=== PATIENT | female | born 1980 | race African-American/Black ===

== ENCOUNTER 2023-03-18 13:03 | Inpatient (IN) | payer BC, MEDICAID, OTHER ==
[2023-03-18 14:57] LABS: Amphetamine Screen,Urine Not Detected (NotDetected); Barbiturate Screen,Urine Not Detected (NotDetected); Benzodiazepines Screen,Urine Not Detected (NotDetected); Cocaine Screen,Urine Not Detected (NotDetected); Methadone Screen, Urine Not Detected (NotDetected); Opiate Screen,Urine Not Detected (NotDetected); Phencyclidine Screen,Urine Not Detected (NotDetected); Tricyclic Antidepressant,Urine Not Detected (NotDetected); Urn Cannabinoid Scrn Not Detected (NotDetected)
[2023-03-18 14:58] LABS: Oxycodone Screen, Urine Not Detected (NotDetected)
[2023-03-18 15:11] LABS: Appearance,Urine Clear (Clear); Bilirubin,Urine Negative (Negative); Blood,Urine Negative (Negative); Color,Urine Light Yellow; Glucose,Urine (UA) Negative (Negative); Ketones,Urine Negative (Negative); Leukocyte Esterase,Urine Negative (Negative); Nitrite,Urine Negative (Negative); PH, Urine 5.5 (5.0-8.0); Protein,Urine Negative (Negative); Specific Gravity,Urine 1.008 (1.001-1.035); Urobilinogen,Urine <2.0 mg/dL (<2.0)
--- NOTE | 2023-03-18 16:27 | ED ---
General Adult HPI - General Chief complaint: Psychiatric Symptoms Stated complaint: mental health Time Seen by Provider: 03/18/23 13:34 Source: patient, RN notes reviewed Mode of arrival: ambulatory Limitations: no limitations - History of Present Illness Initial comments: 42-year-old female presents to the emergency department for psych evaluation. Patient states that she has been having eye problems and has been to see multiple optometrists and multiple ophthalmologists over the past 2 months. She states that she had been on tobramycin drops for about 2 months without improvement. Patient recently stopped. She saw her prospect manager today who recommended that she come in for psych evaluation. Patient has a notebook with multiple pages of information that she read to me about her appointments with various doctors. Her mother reports that she frequently talks to herself and laughs with herself. She reports that she has suicidal ideation but no intent or plan. She states that when she has negative thoughts that causes her eye pains to be worse. She states that she feels like she has stuff in her eyes. She states she has no psychiatric history. She denies hallucinations, delusions. - Related Data Home Medications Medication Instructions Recorded Confirmed Amoxicillin 500 mg PO BID 03/18/23 03/18/23 Carboxymethylcell/Glycerin/Pf 1 drop BOTH EYES Q2H 03/18/23 03/18/23 [Refresh Relieva Pf 0.5-1% Drop] Allergies Allergy/AdvReac Type Severity Reaction Status Date / Time No Known Allergies Allergy Verified 03/18/23 15:47 Review of Systems ROS Statement: Those systems with pertinent positive or pertinent negative responses have been documented in the HPI. ROS Other: All systems not noted in ROS Statement are negative. Past Medical History Past Medical History: No Reported History History of Any Multi-Drug Resistant Organisms: None Reported Additional Past Surgical History / Comment(s): Butt Implants 2018 Past Psychological History: No Psychological Hx Reported Smoking Status: Former smoker Past Alcohol Use History: Rare Past Drug Use History: None Reported General Exam Limitations: no limitations General appearance: alert, in no apparent distress, anxious Head exam: Present: atraumatic, normocephalic, normal inspection Eye exam: Present: normal appearance, PERRL, EOMI. Absent: scleral icterus, conjunctival injection, periorbital swelling ENT exam: Present: normal exam, mucous membranes moist Neck exam: Present: normal inspection. Absent: tenderness, meningismus, lymphadenopathy Respiratory exam: Present: normal lung sounds bilaterally. Absent: respiratory distress, wheezes, rales, rhonchi, stridor Cardiovascular Exam: Present: regular rate, normal rhythm, normal heart sounds. Absent: systolic murmur, diastolic murmur, rubs, gallop, clicks GI/Abdominal exam: Present: soft, normal bowel sounds. Absent: distended, tenderness, guarding, rebound, rigid Extremities exam: Present: normal inspection, full ROM, normal capillary refill. Absent: tenderness, pedal edema, joint swelling, calf tenderness Back exam: Present: normal inspection Neurological exam: Present: alert, oriented X3 Psychiatric exam: Present: anxious Skin exam: Present: warm, dry, intact, normal color. Absent: rash Course Vital Signs 03/18/23 03/18/23 03/18/23 13:12 18:20 18:56 Temperature 97.2 F L Pulse Rate 85 77 72 Respiratory 17 18 18 Rate Blood Pressure 133/80 122/81 124/80 O2 Sat by Pulse 97 97 96 Oximetry Medical Decision Making - Medical Decision Making Was pt. sent in by a medical professional or institution (, PA, [employer], urgent care, hospital, or [facility]...) When possible be specific @ -No Did you speak to anyone other than the patient for history (EMS, parent, family, police, friend...)? What history was obtained from this source @ -No Did you review nursing and triage notes (agree or disagree)? Why? @ -I reviewed and agree with nursing and triage notes Were old charts reviewed (outside hosp., previous admission, EMS record, old EKG, old radiological studies, urgent care reports/EKG's, [facility] records)? Report findings @ -No old charts were reviewed Differential Diagnosis (chest pain, altered mental status, abdominal pain women, abdominal pain men, vaginal bleeding, weakness, fever, dyspnea, syncope, headache, dizziness, GI bleed, back pain, seizure, CVA, palpatations, mental health, musculoskeletal)? @ -Differential Mental Health Depression, anxiety, bipolar, psychosis, schizophrenia, borderline personality, situational depression, adjustment disorder, behavioral disorder, brain tumor, malingering, substance abuse, encephalopathy, medication reaction, dementia, hypothyroidism, degenerative neurologic disorder, lupus.... This is not meant to be all-inclusive list EKG interpreted by me (3pts min.). @ -None X-rays interpreted by me (1pt min.). @ -None done CT interpreted by me (1pt min.). @ -None done U/S interpreted by me (1pt. min.). @ -None done What testing was considered but not performed or refused? (CT, X-rays, U/S, labs)? Why? @ -None What meds were considered but not given or refused? Why? @ -None Did you discuss the management of the patient with other professionals (professionals i.e. DrJose, PA, [employer], lab, RT, psych nurse, group social worker, director of marketing analytics, teacher, intelligence officer basic, case management director)? Give summary @ -No Was smoking cessation discussed for >3mins.? @ -No Was critical care preformed (if so, how long)? @ -No Were there social determinants of health that impacted care today? How? (Homelessness, low income, unemployed, alcoholism, drug addiction, transportation, low edu. Level, literacy, decrease access to med. care, [place] [facility], rehab)? @ -No Was there de-escalation of care discussed even if they declined (Discuss DNR or withdrawal of care, Hospice)? DNR status @ -No What co-morbidities impacted this encounter? (DM, HTN, Smoking, COPD, CAD, Cancer, CVA, ARF, Chemo, Hep., AIDS, mental health diagnosis, sleep apnea, morbid obesity)? @ -None Was patient admitted / discharged? Hospital course, mention meds given and route, prescriptions, significant lab abnormalities, going to OR and other pertinent info. @ -Admitted. Patient presented to emergency department for psychiatric evaluation following a visit with her eye doctor. Patient states that she gets a negative thoughts and then has on a pain. She states this has been going on for about 2 months. Patient was admitting to suicidal ideation without attempt or plan. Patient's mother states that the patient has been talking and laughing to herself. Patient's UDS, UA, breathalyzer were negative and patient was cleared for EPS evaluation who recommended inpatient admission. Patient meets inpatient criteria. Patient stable at time of admission. Undiagnosed new problem with uncertain prognosis? @ -No Drug Therapy requiring intensive monitoring for toxicity (Heparin, Nitro, Insulin, Cardizem)? @ -No Were any procedures done? @ -No Diagnosis/symptom? @ -Suicidal ideation Acute, or Chronic, or Acute on Chronic? @ -acute Uncomplicated (without systemic symptoms) or Complicated (systemic symptoms)? @ - Side effects of treatment? @ -No Exacerbation, Progression, or Severe Exacerbation? @ -No Poses a threat to life or bodily function? How? (Chest pain, [place], [place], pneumonia, PE, COPD, DKA, ARF, appy, cholecystitis, CVA, Diverticulitis, Homicidal, Suicidal, threat to staff... and all critical care pts) @ -Suicidal - Lab Data Lab Results 03/18/23 03/18/23 Range/Units 14:44 15:51 Urine Color Light Yellow Urine Appearance Clear (Clear) Urine pH 5.5 (5.0-8.0) Ur Specific [place] 1.008 (1.001-1.035) Urine Protein Negative (Negative) Ur Protein Confirm Not Reportable Urine Glucose (UA) Negative (Negative) Urine Ketones Negative (Negative) Urine Blood Negative (Negative) Urine Nitrite Negative (Negative) Urine Bilirubin Negative (Negative) Ur Bilirubin Confirm Not Reportable Urine Urobilinogen <2.0 (<2.0) mg/dL Ur Leukocyte Esterase Negative (Negative) Urine Opiates Screen Not Detected (NotDetected) Ur Oxycodone Screen Not Detected (NotDetected) Urine Methadone Screen Not Detected (NotDetected) Ur Propoxyphene Screen Not Detected (NotDetected) Ur Barbiturates Screen Not Detected (NotDetected) U Tricyclic Antidepress Not Detected (NotDetected) Ur Phencyclidine Scrn Not Detected (NotDetected) Ur Amphetamines Screen Not Detected (NotDetected) U Methamphetamines Scrn Not Detected (NotDetected) U Benzodiazepines Scrn Not Detected (NotDetected) Urine Cocaine Screen Not Detected (NotDetected) U Marijuana (THC) Screen Not Detected (NotDetected) Coronavirus (PCR) Not Detected (Not Detectd) Disposition Clinical Impression: Suicidal ideation Disposition: ADMITTED IP TO THIS [facility] Condition: Stable Is patient prescribed a controlled substance at d/c from ED?: No
[2023-03-18] MEDS ORDERED: MAG HYDROX/AL HYDROX/SIMETH 30 ML CUP PO PRN (17:37)
[2023-03-18] MEDS ORDERED: MAGNESIUM HYDROXIDE 2,400 MG/10 ML CUP PO PRN (17:37)
[2023-03-18] MEDS ORDERED: IBUPROFEN 600 MG TAB PO PRN (17:37)
[2023-03-18] MEDS ORDERED: ARTIFICIAL TEARS-HYPROMELLOSE DROPS 15 ML BTL BOTH EYES PRN (17:40)
[2023-03-18] MEDS ORDERED: OLANZapine 5 MG TAB PO PRN (17:42)
[2023-03-18] MEDS ORDERED: hydrOXYzine pamoate 25 MG CAP PO PRN (17:42)
[2023-03-18] MEDS ORDERED: hydrOXYzine HCL 50 MG/ML 1 ML VIAL IM PRN (17:42)
[2023-03-18] MEDS ORDERED: OLANZapine 10 MG VIAL IM PRN (17:42)
[2023-03-18 20:03] VITALS: RESP 17
[2023-03-18] MEDS: AMOXICILLIN 500 MG CAP PO SCH (20:07)
[2023-03-19 08:12] LABS: Basophils % (A) 0 %; Eosinophils % (A) 1 %; HCT 41.2 % (34.0-46.0); HGB 13.3 gm/dL (11.4-16.0); Lymphocytes # (A) 1.4 k/uL (1.0-4.8); Lymphocytes % (A) 30 %; MCH 30.4 pg (25.0-35.0); MCHC 32.3 g/dL (31.0-37.0); MCV 94.2 fL (80.0-100.0); Monocytes # (A) 0.2 k/uL (0-1.0); Monocytes % (A) 5 %; Neutrophils # (A) 2.9 k/uL (1.3-7.7); Neutrophils % (A) 62 %; Platelet Count 274 k/uL (150-450); RBC 4.38 m/uL (3.80-5.40); RDW 12.3 % (11.5-15.5); WBC 4.7 k/uL (3.8-10.6)
[2023-03-19 08:32] LABS: ALT 20 U/L (4-34); AST 29 U/L (14-36); African American GFR (CKD) >90 (>60 ml/min/1.73 sqM); Albumin 4.2 g/dL (3.5-5.0); Alkaline Phosphatase 54 U/L (38-126); Anion Gap 10 mmol/L; Blood Urea Nitrogen 9 mg/dL (7-17); Calcium 9.2 mg/dL (8.4-10.2); Carbon Dioxide 28 mmol/L (22-30); Chloride 101 mmol/L (98-107); Glucose 87 mg/dL (74-99); Non-African American GFR(CKD) >90 (>60 ml/min/1.73 sqM); Potassium 4.6 mmol/L (3.5-5.1); Sodium 139 mmol/L (137-145); Total Bilirubin 0.7 mg/dL (0.2-1.3); Total Protein 7.6 g/dL (6.3-8.2)
[2023-03-19] MEDS: AMOXICILLIN 500 MG CAP PO SCH ×2 (08:32→20:45)
[2023-03-19] MEDS ORDERED: NICOTINE 14MG/24HR PATCH TRANSDERM SCH (09:00)
[2023-03-19] MEDS ORDERED: OXcarbazepine 150 MG TAB PO STA (10:54)
--- NOTE | 2023-03-19 12:29 | P.HP ---
Psychiatric H&P - . H&P Date: 03/19/23 History & Physical: Allergies Allergy/AdvReac Type Severity Reaction Status Date / Time No Known Allergies Allergy Verified 03/18/23 15:47 Vital Signs Temp 96.9 F L 03/18/23 19:56 Pulse 96 03/18/23 19:56 Resp 17 03/18/23 19:56 BP 122/80 03/18/23 19:56 Pulse Ox 100 03/18/23 19:56 FiO2 Intake & Output 03/18/23 03/19/23 03/19/23 18:59 06:59 18:59 Weight 78.018 kg 75.863 kg Laboratory Last Values WBC 4.7 k/uL (3.8-10.6) 03/19/23 07:32 RBC 4.38 m/uL (3.80-5.40) 03/19/23 07:32 Hgb 13.3 gm/dL (11.4-16.0) 03/19/23 07:32 Hct 41.2 % (34.0-46.0) 03/19/23 07:32 MCV 94.2 fL (80.0-100.0) 03/19/23 07:32 MCH 30.4 pg (25.0-35.0) 03/19/23 07:32 MCHC 32.3 g/dL (31.0-37.0) 03/19/23 07:32 RDW 12.3 % (11.5-15.5) 03/19/23 07:32 Plt Count 274 k/uL (150-450) 03/19/23 07:32 MPV 7.0 03/19/23 07:32 Neutrophils % 62 % 03/19/23 07:32 Lymphocytes % 30 % 03/19/23 07:32 Monocytes % 5 % 03/19/23 07:32 Eosinophils % 1 % 03/19/23 07:32 Basophils % 0 % 03/19/23 07:32 Neutrophils # 2.9 k/uL (1.3-7.7) 03/19/23 07:32 Lymphocytes # 1.4 k/uL (1.0-4.8) 03/19/23 07:32 Monocytes # 0.2 k/uL (0-1.0) 03/19/23 07:32 Eosinophils # 0.0 k/uL (0-0.7) 03/19/23 07:32 Basophils # 0.0 k/uL (0-0.2) 03/19/23 07:32 Sodium 139 mmol/L (137-145) 03/19/23 07:32 Potassium 4.6 mmol/L (3.5-5.1) 03/19/23 07:32 Chloride 101 mmol/L (98-107) 03/19/23 07:32 Carbon Dioxide 28 mmol/L (22-30) 03/19/23 07:32 Anion Gap 10 mmol/L 03/19/23 07:32 BUN 9 mg/dL (7-17) 03/19/23 07:32 Creatinine 0.64 mg/dL (0.52-1.04) 03/19/23 07:32 Est GFR (CKD-EPI)AfAm >90 (>60 ml/min/1.73 sqM) 03/19/23 07:32 Est GFR (CKD-EPI)NonAf >90 (>60 ml/min/1.73 sqM) 03/19/23 07:32 Glucose 87 mg/dL (74-99) 03/19/23 07:[address] Glu mg/dL 97 mg/dL 03/19/23 07:32 Hemoglobin A1c 5.0 % (<=6.0) 03/19/23 07:32 Calcium 9.2 mg/dL (8.4-10.2) 03/19/23 07:32 Total Bilirubin 0.7 mg/dL (0.2-1.3) 03/19/23 07:32 AST 29 U/L (14-36) 03/19/23 07:32 ALT 20 U/L (4-34) 03/19/23 07:32 Alkaline Phosphatase 54 U/L (38-126) 03/19/23 07:32 Total Protein 7.6 g/dL (6.3-8.2) 03/19/23 07:32 Albumin 4.2 g/dL (3.5-5.0) 03/19/23 07:32 TSH 0.567 mIU/L (0.465-4.680) 03/19/23 07:32 Urine Color Light Yellow 03/18/23 14:44 Urine Appearance Clear (Clear) 03/18/23 14:44 Urine pH 5.5 (5.0-8.0) 03/18/23 14:44 Ur Specific [place] 1.008 (1.001-1.035) 03/18/23 14:44 Urine Protein Negative (Negative) 03/18/23 14:44 Ur Protein Confirm Not Reportable 03/18/23 14:44 Urine Glucose (UA) Negative (Negative) 03/18/23 14:44 Urine Ketones Negative (Negative) 03/18/23 14:44 Urine Blood Negative (Negative) 03/18/23 14:44 Urine Nitrite Negative (Negative) 03/18/23 14:44 Urine Bilirubin Negative (Negative) 03/18/23 14:44 Ur Bilirubin Confirm Not Reportable 03/18/23 14:44 Urine Urobilinogen <2.0 mg/dL (<2.0) 03/18/23 14:44 Ur Leukocyte Esterase Negative (Negative) 03/18/23 14:44 Urine HCG, Qual Not Detected (Not Detectd) 03/18/23 17:37 Urine Opiates Screen Not Detected (NotDetected) 03/18/23 14:44 Ur Oxycodone Screen Not Detected (NotDetected) 03/18/23 14:44 Urine Methadone Screen Not Detected (NotDetected) 03/18/23 14:44 Ur Propoxyphene Screen Not Detected (NotDetected) 03/18/23 14:44 Ur Barbiturates Screen Not Detected (NotDetected) 03/18/23 14:44 U Tricyclic Antidepress Not Detected (NotDetected) 03/18/23 14:44 Ur Phencyclidine Scrn Not Detected (NotDetected) 03/18/23 14:44 Ur Amphetamines Screen Not Detected (NotDetected) 03/18/23 14:44 U Methamphetamines Scrn Not Detected (NotDetected) 03/18/23 14:44 U Benzodiazepines Scrn Not Detected (NotDetected) 03/18/23 14:44 Urine Cocaine Screen Not Detected (NotDetected) 03/18/23 14:44 U Marijuana (THC) Screen Not Detected (NotDetected) 03/18/23 14:44 Coronavirus (PCR) Not Detected (Not Detectd) 03/18/23 15:51 03/19/23 12:29 IDENTIFYING DATA: Patient is a single, unemployed, 42-year-old Afro-Cuban female with no significant psychiatric history who presented to our hospital on 03/18/2023 on the recommendation from her director of purchasing for suicidal ideation. HPI: Patient presented to the hospital on 03/18/2023 for evaluation of suicidal ideation. The patient presented to the hospital on the recommendation of her director of purchasing. The patient has been experiencing bizarre pain and various vague symptoms in regards to her eyes prior to her presentation the hospital. Patient states that this has been ongoing and bothersome for the past 3 months. She does report that it began after she had conjunctivitis. She reports that since then, she has been experiencing intermittent pain that is too much to bear. She reports that the pain is causing her to have suicidal thoughts. The patient does report that she has been experiencing increased stress however since December, she reports that she has been able to maintain "a level head." The patient reports that she lost her job in October and a close friend of hers in November. In regards to mood symptoms, the patient does not endorse any significant symptoms of depression aside from crying episodes. She does report that she normally does not cry however she has been crying more frequently. She is denying any suicidal thoughts except for when she is experiencing the pain. She reports no homicidal ideation. The patient reports no auditory or visual hallucinations. She denies any paranoia or other delusions. The patient denies any significant history of bipolar symptoms. She denies any periods of excessive energy, grandiosity, increased goal-directed activity, or mood lability. The patient reports that she is very concerned about the palms with her eyes and wants to be on a medication that would treat this. She asked for constant reassurance throughout the interview. PAST PSYCHIATRIC HISTORY: Patient states that she has no previous psychiatric history. Patient denies being on any psychiatric medications. Patient denies any previous psychiatric hospitalizations. Patient denies any psychiatric outpatient follow-up. Patient denies any history of suicide attempts in the past. PMH: Past Medical History: No Reported History History of Any Multi-Drug Resistant Organisms: None Reported Additional Past Surgical History / Comment(s): Butt Implants 2018 Past Psychological History: No Psychological Hx Reported Smoking Status: Former smoker Past Alcohol Use History: Rare Past Drug Use History: None Reported ALLERGIES: NO KNOWN DRUG ALLERGIES CHEMICAL DEPENDENCY HISTORY: The patient reports that she quit tobacco approximately 3 months ago because of the high pain. Prior to that, she was smoking 8 cigarettes per day. She reports no alcohol use. She denies any marijuana use. She denies any illicit drug use. FAMILY PSYCHIATRIC/SUBSTANCE USE HISTORY: The patient does report that she has had a maternal grandmother who was schizophrenic. She reports that her father was alcoholic. SOCIAL HISTORY: Patient was born and raised in [place], [place]. She is single, never , and has 2 children ages 18 and 23. She currently lives with her children and stays occasionally with her mother "out of boredom." The patient reports strong support from her family. She has a bachelor's degree in business and majored in finance. She denies any legal history. She reports no service. She states that she is Jehovah'S Witness. She reports no significant history of trauma. MENTAL STATUS EXAM: General Appearance: Patient appears to be stated age is alert, directable, and attempts to cooperate. Patient appears to have fair hygiene and grooming. Behavior: Patient is seated without any agitated behavior. Psychomotor activity slightly elevated. Patient is constantly gestured towards her eyes. Speech: Patient's speech is fluent and nonpressured. Repetitive. Mood/Affect: Patient reports their mood is "very nervous," affect is congruent and anxious. Suicidality/Homicidality: Patient reports suicidal ideation the context of eye pain. Denies any homicidal ideation. Perceptions: Patient denies any visual hallucinations and denies any auditory hallucinations Though content/process: There is no evidence of any delusional thought content and thought process is linear and goal-directed. Memory and concentration: AOX3, grossly intact for the purposes of this session. Can spell "WORLD" backwards Judgment and insight: Fair STRENGTHS/WEAKNESSES: Strength is that the patient is resilient, has no sniffing psychiatric history, and strong family supports. INTELLECT: average IMPRESSIONS: Somatic symptom disorder, severe, with predominant pain Rule out trigeminal neuralgia PLAN: -Patient is admitted under voluntary status to MHU for stabilization of psychiatric symptoms and safety. -Medications : Will start patient on Trileptal 150 mg by mouth twice a day for unspecified mood disorder and for trigeminal neuralgia -Approximately 30 minutes were spent providing the patient with psychoeducation in regards to somatic symptom disorder and constant reassurance. - Zyprexa and Vistaril PRN for agitation/aggression -Patient was informed of the risks, benefits and side effects of the medication and patient verbally consented to taking the medications. Patient signed med consent form and was placed in chart. -Internal Medicine consult to perform medical evaluation and physical. -SW on board for discharge planning. Encourage patient to participate in groups to work on coping skills. 03/19/23 12:29
--- NOTE | 2023-03-19 15:22 | P.HPMEDMHU ---
History of Present Illness H&P Date: 03/19/23 Patient is a 42-year-old -Prydeinig female currently on the mental health unit that I was asked to evaluate for ear pain. Patient seen and examined with nursing present. She reports that she is being treated for an ear infection. She states that after her ear infection started her other ear started to hurt as well and she would like both of them looked at that she is due to have one more dose of antibiotics and she wants to make sure there is not an active infection. She does report some runny and stuffy nose. Vital signs reviewed General: nontoxic, no distress, appears at stated age HEENT: Normocephalic, atraumatic, bilateral tympanic membranes intact without e rythema but with loss of cone of light consistent with increased pressure Cardiac: S1-S2 Lungs: Clear to auscultation bilaterally without any wheezing Neuro: CN II-XI grossly intact, no focal neuro deficits Psych: Alert, oriented, appears anxious with pressured speech Assessment: ALLERGIC rhinitis -I offered the patient a combination of Claritin and Flonase. She does not want to take either of these medications is that she states they have made her "marr icidal" in the past. I explained that Flonase is not systemically absorbed medication and works within the nares however she continues to insist that this has caused suicidal thoughts and worsening of her depression in the past. At this point she declines to take both of the Claritin and Flonase. I have told her to let us know if she decides she would like these ordered in the future if she decided to pursue treatment. Somatization disorder - your psych management Thank you for allowing us to participate in the care of this pleasant patient. Do not hesitate to contact us with questions. Someone can be reached from the [facility] hospitalist group all hours of the day at [phone] or via [employer]. This dictation was prepared using [employer] voice recognition software. Though every attempt is made to correct errors during dictation some may still exist. Past Medical History Past Medical History: No Reported History History of Any Multi-Drug Resistant Organisms: None Reported Additional Past Surgical History / Comment(s): Gluteal Implants 2018 Past Psychological History: No Psychological Hx Reported Smoking Status: Former smoker Past Alcohol Use History: Rare Past Drug Use History: None Reported Medications and Allergies Home Medications Medication Instructions Recorded Confirmed Type Amoxicillin 500 mg PO BID 03/18/23 03/18/23 History Carboxymethylcell/Glycerin/Pf 1 drop BOTH EYES Q2H 03/18/23 03/18/23 History [Refresh Relieva Pf 0.5-1% Drop] Allergies Allergy/AdvReac Type Severity Reaction Status Date / Time No Known Allergies Allergy Verified 03/18/23 15:47 Physical Exam Osteopathic Statement: *. No significant issues noted on an osteopathic structural exam other than those noted in the History and Physical/Consult. Vitals: Vital Signs Temp Pulse Pulse Resp BP BP Pulse Ox 03/18/23 19:56 96.9 F L 96 17 122/80 100 03/18/23 18:56 72 18 124/80 96 03/18/23 18:20 77 18 122/81 97 Cranial Nerve Examination - Cranial Nerves Cranial Nerve II- Optic: Intact Cranial Nerve III- Oculomotor: Intact Cranial Nerve IV- Trochlear: Intact Cranial Nerve V- Trigeminal: Intact Cranial Nerve - Abducens: Intact Cranial Nerve VII- Facial: Intact Cranial Nerve VIII- Auditory: Intact Cranial Nerve IX- Glossopharyngeal: Intact Cranial Nerve X- Vagus: Intact Cranial Nerve XI- Accessory: Intact Cranial Nerve XII- Hypoglossal: Intact Results CBC & Chem 7: 03/19/23 07:32 03/19/23 07:32
[2023-03-19] MEDS: OXcarbazepine 150 MG TAB PO SCH (20:45)
[2023-03-20 06:20] VITALS: BP 115/75; PULSE 120; TEMP 97.9
[2023-03-20] MEDS: OXcarbazepine 150 MG TAB PO SCH ×2 (08:45→21:46)
[2023-03-20] MEDS: [UNRECOGNIZED DRUG - OTHER] BOTH EYES PRN ×4 (09:15→16:13)
[2023-03-20] MEDS ORDERED: OXcarbazepine 150 MG TAB PO STA (09:48)
--- NOTE | 2023-03-20 11:48 | P.PN ---
Progress Note - Text Progress Note Date: 03/20/23 Interval History: Patient was seen wandering the hallways and was directable and agreeable to speak with commercial underwriter in the office. Currently, the patient continues to report that she is feeling a significant amount of pain around her eyes. She reports that this pain is "worse than childbirth." However despite reporting this pain, she appears to be active and not debilitated while in the milieu. She is not tearful. The patient expresses that she is worried that the medications are causing problems. She reports concerns for migraines, nightmares, seizures. Staff have noted no concerns for seizures. She reports no problems with her appetite. She reports difficulty with sleep. She denies any homicidal ideation however she continues to report suicidal ideation "due to the pain." She is asking this provider to refer her to more ophthalmologists upon discharge. Mental Status Exam: General Appearance: Patient appears to be stated age is alert, directable, and cooperative. Behavior: Patient displays elevated psychomotor activity. Speech: Patient's speech is fluent and nonpressured. Hyperverbal and repetitive Mood/Affect: Mood is "not good." Affect is intense and expansive. Suicidality/Homicidality: Patient reports suicidal but no homicidal ideation. Perceptions: Patient denies any visual hallucinations and denies any auditory hallucinations Though content/process: The patient endorses numerous somatic delusions. Strong fixation on her physical symptoms and pain. Memory and concentration: AOX3, grossly intact for the purposes of this session Judgment and insight: Very poor Vital Signs Temp 97.9 F 03/20/23 06:18 Pulse 120 H 03/20/23 06:18 Resp 17 03/20/23 06:18 BP 115/75 03/20/23 06:18 Pulse Ox 97 03/20/23 06:18 FiO2 Assessment Somatic symptom disorder, severe, with predominant pain Plan: -Patient continues to meet criteria for inpatient psychiatric admission for symptom stabilization and safety. Patient has signed adult voluntary form and medication consent and was placed in patient's chart. -Medications: Increase Trileptal to 300 mg by mouth twice a day for unspecified mood disorder and for trigeminal neuralgia Start Zyprexa 2.5 mg by mouth 3 times a day for delusional disorder Start melatonin 10 mg by mouth at bedtime for insomnia -This provider attempts to provide the patient was psychoeducation and reassurance. Patient is contemplative at this time. When necessary Zyprexa and Vistaril for agitation/aggression. -SW on board for discharge planning. Encouraged the patient to participate in milieu.
[2023-03-20] MEDS: OLANZapine 2.5 MG TAB PO SCH ×2 (15:53→21:45)
[2023-03-20] MEDS: MELATONIN 5 MG TABLET PO SCH (21:46)
[2023-03-21] MEDS: OXcarbazepine 150 MG TAB PO SCH (08:54)
[2023-03-21] MEDS: OLANZapine 2.5 MG TAB PO SCH (08:55)
[2023-03-21] MEDS: [UNRECOGNIZED DRUG - OTHER] BOTH EYES PRN (09:02)
--- NOTE | 2023-03-21 10:23 | P.PN ---
Subjective Progress Note Date: 03/21/23 Principal diagnosis: Diagnosis: Delusional disorder with somatic pain Rule out trigeminal neuralgia Patient was seen wandering the hallways and was directable and agreeable to speak with mortgage or loan underwriter in the office. Currently, the patient continues to report that she is feeling a significant amount of pain around her eyes. She reports that this pain is "worse than childbirth." However despite reporting this pain, she appears to be active and not debilitated while in the milieu. She is not tearful. The patient expresses that she is worried that the medications are causing problems. She reports concerns for migraines, nightmares, seizures. Staff have noted no concerns for seizures. She reports no problems with her appetite. She reports difficulty with sleep. She denies any homicidal ideation however she continues to report suicidal ideation "due to the pain." She is asking this provider to refer her to more ophthalmologists upon discharge. Mental Status Exam: The patient is alert intelligent and does not seem to be in any pain. If you do not confront her focus she does not get agitated. When you try to clarify her strange description of symptoms such as, "I was trying to rub the sleep out of my eyes". She wanders off tying about other things and could not tell me what she meant by sleep in her eyes. She has her series of how things happened that she was smoking contaminated her fingers rub to rise and that has caused some sort of ALLERGIC reaction. General Appearance: Patient appears to be stated age is alert, directable, and cooperative. Behavior: Patient displays elevated psychomotor activity. Speech: Patient's speech is fluent and nonpressured. Hyperverbal and repetitive Mood/Affect: Mood is "not good." Affect is intense and expansive. Suicidality/Homicidality: Patient reports suicidal but no homicidal ideation. Perceptions: Patient denies any visual hallucinations and denies any auditory hallucinations Though content/process: The patient endorses numerous somatic delusions. Strong fixation on her physical symptoms and pain. Memory and concentration: AOX3, grossly intact for the purposes of this session Judgment and insight: Very poor Assessment : Prognosis is guarded in: I believe that she has an ego-syntonic somatic fixation that is not going to respond to confrontation or medications or even if she gets to see all the different doctors and they'll say there is nothing to be treated she was just keep looking. Then she finds a Trileptal somewhat helpful I'm might increase the frequency so glasses a day and she is sleeping better on the melatonin. Diagnosis: delusional disorder Somatic symptom disorder, severe, with predominant pain Plan: Unfortunately delusional disorder not respond well to much of anything because it's too ego-syntonic -Patient continues to meet criteria for inpatient psychiatric admission for symptom stabilization and safety. Patient has signed adult voluntary form and medication consent and was placed in patient's chart. -Medications: Increase Trileptal to 300 mg by mouth twice a day for unspecified mood disorder and for trigeminal neuralgia she said this was helpful but doesn't seem to last she does not have any dizziness or physical complaints from it. I'm going to increase it to 3 times a day She reported that the Zyprexa made the itching of her eyeballs and pain worse so she refuses to take it Start melatonin 10 mg by mouth at bedtime for insomnia she said this was helpful -This provider attempts to provide the patient was psychoeducation and nimisha ssurance. Patient is contemplative at this time. When necessary Zyprexa and Vistaril for agitation/aggression. -SW on board for discharge planning. Encouraged the patient to participate in milieu. Objective - Vital Signs Vital signs: Vital Signs Temp 97.9 F 03/20/23 06:18 Pulse 120 H 03/20/23 06:18 Resp 17 03/20/23 06:18 BP 115/75 03/20/23 06:18 Pulse Ox 97 03/20/23 06:18 FiO2 - Labs CBC & Chem 7: 03/19/23 07:32 03/19/23 07:32
[2023-03-21] MEDS: OXcarbazepine 300 MG TAB PO SCH ×2 (15:41→21:08)
[2023-03-21] MEDS: MELATONIN 5 MG TABLET PO SCH (21:08)
[2023-03-22] MEDS: OXcarbazepine 300 MG TAB PO SCH ×2 (09:19→20:41)
--- NOTE | 2023-03-22 11:20 | P.PN ---
Subjective Progress Note Date: 03/22/23 Principal diagnosis: Diagnosis: I think that this is a Conversion disorder rather than Delusional disorder with somatic pain but they are similar Rule out trigeminal neuralgia Patient was seen laying in bed at 11 in the morning and agreeable to speak with underwriter mortgage loan in the office. Currently, the patient continues to report that she is feeling a significant amount of pain around her eyes. She reports that this pain is "worse than childbirth." She had reported that Trileptal gave her a slight relief but didn't last long enough so increased to 3 a day which said just made her eyes feel worse. When I tried to talk to her about the fact that her brain was probably generating the pain to get her out of something and that everyone with conversion disorder believe they don't have a conversion disorder and says yes but is her doctor and that she should consider this to be most likely not something that will respond to medicine but might get better on cou nseling, she said "yes but no one can live with this terrible pain." However despite reporting this pain, she appears to be active and not debilitated while in the milieu. She is not tearful. The patient expresses that she is worried that the medications are causing problems. I believe that no matter what medicines are used they will not work and no matter what tests are running they will not find anything but should be sure that there is something there and continue to seek further tests further specialists. She reports concerns for migraines, nightmares, seizures. Staff have noted no concerns for seizures. She reports no problems with her appetite. She reports difficulty with sleep. She denies any homicidal ideation however she continues to report suicidal ideation "due to the pain." She is asking this provider to refer her to more ophthalmologists upon discharge. Mental Status Exam: The patient is alert intelligent and does not seem to be in any pain. If you do not confront her focus she does not get agitated. When you try to get her to identify stresses in her life that might have contributed to develop a conversion disorder. She wanders off on other topics talking about other things. She has her series of how things happened that she was smoking contaminated her fingers rub to rise and that has caused some sort of ALLERGIC reaction. Now she is focused on how the air conditioner turning on and is causing the pain get worse this allows her to not go to groups. Remote turn off their condition room but not in the group. This is typical conversion disorder that he gets to immediate present responsibility. General Appearance: Patient appears to be stated age is alert, directable, and cooperative. Behavior: Patient displays elevated psychomotor activity. Speech: Patient's speech is fluent and nonpressured. Hyperverbal and repetitive Mood/Affect: Mood is "not good." Affect is intense and expansive. Suicidality/Homicidality: Patient reports suicidal but no homicidal ideation. Perceptions: Patient denies any visual hallucinations and denies any auditory hallucinations Though content/process: The patient endorses numerous somatic delusions. Strong fixation on her physical symptoms and pain. Memory and concentration: AOX3, grossly intact for the purposes of this session Judgment and insight: Very poor Assessment : Prognosis is guarded: I believe that she has an ego-syntonic somatic fixation that is not going to respond to confrontation or medications or even if she gets to see all the different doctors and they'll say there is nothing to be treated she was just keep looking. Then she finds a Trileptal somewhat. Diagnosis: Conversion disorder possible delusional disorder with Somatic symptom disorder, severe, with predominant pain Plan: Unfortunately conversion or delusional disorder 2 not respond well to much of anything because it's too ego-syntonic -Patient continues to meet criteria for inpatient psychiatric admission for symptom stabilization and safety. Patient has signed adult voluntary form and medication consent and was placed in patient's chart. -Medications: Go back down to Trileptal to 300 mg by mouth twice a day for unspecified mood disorder and for trigeminal neuralgia. She reported that the Zyprexa made the itching of her eyeballs and pain worse so she refuses to take it Start melatonin 10 mg by mouth at bedtime for insomnia she said this was helpful -This provider attempts to provide the patient was psychoeducation and reassurance. Patient is contemplative at this time. When necessary Zyprexa and Vistaril for agitation/aggression. -SW on board for discharge planning. Encouraged the patient to participate in milieu. Objective - Vital Signs Vital signs: Vital Signs Temp 97.9 F 03/20/23 06:18 Pulse 120 H 03/20/23 06:18 Resp 17 03/20/23 06:18 BP 115/75 03/20/23 06:18 Pulse Ox 97 03/20/23 06:18 FiO2 Intake & Output 03/21/23 03/22/23 03/22/23 18:59 06:59 18:59 Weight 78.3 kg - Labs CBC & Chem 7: 03/19/23 07:32 03/19/23 07:32
[2023-03-22] MEDS: [UNRECOGNIZED DRUG - OTHER] BOTH EYES PRN ×5 (11:46→20:41)
[2023-03-22] MEDS: MELATONIN 5 MG TABLET PO SCH (20:41)
[2023-03-23] MEDS: [UNRECOGNIZED DRUG - OTHER] BOTH EYES PRN ×2 (08:47→11:24)
[2023-03-23] MEDS: OXcarbazepine 300 MG TAB PO SCH (09:44)
--- NOTE | 2023-03-23 12:21 | P.DS ---
Providers Date of admission: 03/18/23 17:25 Expected date of discharge: 03/23/23 Attending physician: Jarred Bueno MD Consults: 03/18/23 17:37 Consult Physician Routine Consulting Provider: Shaw Goncalves Consult Reason/Comments: H&P Do you want consulting provider notified?: Yes Primary care physician: Poli Graham Kut - Discharge Diagnosis(es) (1) Somatic symptom disorder, persistent, severe Current Visit: Yes Status: Acute Priority: High Hospital Course: Admission HPI: Patient is a single, unemployed, 42-year-old Afro-[place] female with no significant psychiatric history who presented to our hospital on 03/18/2023 on the recommendation from her curtain stretcher for suicidal ideation. HPI: Patient presented to the hospital on 03/18/2023 for evaluation of suicidal ideation. The patient presented to the hospital on the recommendation of her curtain stretcher. The patient has been experiencing bizarre pain and various vague symptoms in regards to her eyes prior to her presentation the hospital. Patient states that this has been ongoing and bothersome for the past 3 months. She does report that it began after she had conjunctivitis. She reports that since then, she has been experiencing intermittent pain that is too much to bear. She reports that the pain is causing her to have suicidal thoughts. The patient does report that she has been experiencing increased stress however since December, she reports that she has been able to maintain "a level head." The patient reports that she lost her job in October and a close friend of hers in November. In regards to mood symptoms, the patient does not endorse any significant symptoms of depression aside from crying episodes. She does report that she normally does not cry however she has been crying more frequently. She is denying any suicidal thoughts except for when she is experiencing the pain. She reports no homicidal ideation. The patient reports no auditory or visual hallucinations. She denies any paranoia or other delusions. The patient denies any significant history of bipolar symptoms. She denies any periods of excessive energy, grandiosity, increased goal-directed activity, or mood lability. The patient reports that she is very concerned about the palms with her eyes and wants to be on a medication that would treat this. She asked for constant reassurance throughout the interview. Patient states that she has no previous psychiatric history. Patient denies being on any psychiatric medications. Patient denies any previous psychiatric hospitalizations. Patient denies any psychiatric outpatient follow-up. Patient denies any history of suicide attempts in the past. Hospital course: Upon admission to the unit patient was initially presenting as very somatic and endorsing suicidal ideation the context of her severe somatic symptoms. Patient was however directable and agreeable to commence treatment. Patient got along well with other patients on the unit and followed unit protocol. Patient was compliant with the medications and denied any side effects throughout hospital course. Firstly, the patient was educated on somatic symptoms disorder and the importance of reassurance from her outpatient providers and the importance of minimizing invasive testing and invasive treatment. Patient did not appear to be hesitant in accepting this and continued to maintain that there was something physically happening. Patient was started on Trileptal for management of unspecified mood disorder with the added benefit that it may treat trigeminal neuralgia should the patient be experiencing this as the underlying cause. Patient spoke of her stressors and engaged in therapy both group and individual. Patient was also seen by medical team for history and physical exam. A trial of Zyprexa was also started however the patient reported that she experienced significant side effects did not wish to continue taking this medication. The patient also did not tolerate higher doses of the Trileptal. The patient was constantly counseled and provided with psychoeducation regarding somatic symptoms disorder but continues to remain delusional. Despite this, the patient displayed no impairment to her day-to-day activities and living. She attended groups the high-level participation and although she endorsed significant pain, the patient did not appear to be debilitated and was ambulating around the milieu and interacting with staff and peers appropriately. On the day of discharge, the patient is not reporting any suicidal or homicidal ideation, intention, and/or plan. She is not reporting any auditory or visual hallucinations. She denies any access to firearms or other weapons. The patient remains future and goal oriented however despite reassurance, she wishes to seek further evaluation treatment from another curtain stretcher, preferably at the [facility]. The patient is future and goal oriented. The patient reports wanting to live for her health and for her family. The patient does not have a significant history of substance abuse however was counseled at great length on abstaining small substances including tobacco, marijuana, alcohol, and all illicit drugs. She was counseled on the importance of medication adherence and appropriate outpatient follow-up. Prior to discharge, meeting will be arranged by social work has questions and ensure safety. Aside from her somatic complaints of eye pain, the patient is not endorsing any other medical issues or concerns and denies any chest pain, shortness of breath, palpitations, nausea, akathisia, or tardive dyskinesia. Mental status exam: General Appearance: Patient appears to be stated age is alert, pleasant, and cooperative. Patient is in no acute distress and has fair hygiene and grooming Behavior: Patient is calmly seated without any agitated behavior. Speech: Patient's speech is fluent and nonpressured. Mood/Affect: Patient reports their mood is "it is still bothering me but the Trileptal helps a little bit", affect is congruent and euthymic. Suicidality/Homicidality: Patient reports no suicidal or homicidal ideation. Perceptions: Patient denies any auditory or visual hallucinations. Though content/process: There is no evidence of any delusional thought content and thought process is linear and goal-directed. Patient is future oriented Memory and concentration: AOX3, grossly intact for the purposes of this session. Can spell "WORLD" backwards correctly. Judgment and insight: Improved with guarded prognosis Impression: Somatic symptom disorder, severe, with predominant pain Plan: -Continue with discharge today as patient has improved and stabilized psychiatrically and is not currently an imminent threat to herself and/or others. Patient remain at chronically elevated risk due to the severity of her somatic symptoms disorder. Her current symptoms are ego syntonic and therefore she does not agree with treatment otherwise. The patient was provided with education on somatic symptom disorder with recommendations for frequent outpatient follow-up with reassurance and to avoid invasive testing and treatment. -Continue medications: Trileptal 300 mg by mouth twice a day for off label use for unspecified mood disorder with added benefit for possible pain management from trigeminal neuralgia Vistaril 25 mg by mouth 3 times a day when necessary for anxiety/seasonal allergies Melatonin 10 mg daily at bedtime for insomnia Ibuprofen for pain when necessary -Patient was counseled on the need for medication compliance and appropriate follow-up at mental health and also primary care for medical issues. Patient verbalized understanding and agreed. -Social work to arrange for and conduct family meeting to ensure safety upon discharge and answer any questions/concerns. Social work also to arrange for patients follow up appointments with [facility] for psychiatric care along with follow up with primary care provider. -Patient counseled on abstaining from recreational drugs and marijuana and alcohol. Was informed/educated on the adverse effects on their physical and mental health. Patient verbally agreed and understood. -Patient was instructed to return to the hospital or seek immediate medical care if their psychiatric or medical symptoms do worsen or reoccur. -Psychoeducation and supportive therapy provided to patient. Risks and benefits of pharmacological treatment versus the risks and benefits of nontreatment weighed and discussed. Informed consent discussion held. Common side effects of psychotropics discussed such as, but not limited to headache, GI disturbance, sexual dysfunction, movement disorders, sedation, and orthostatic hypotension. Life threatening and blackbox warnings of prescribed medications also discussed. Potential risks of operating a vehicle or heavy machinery discussed with patient at length. Advised on importance of compliance and a reliable and responsible manner. Patient advised to review FDA consumer labeling of all medications prior to taking. Patient verbalized understanding of potential risks, and agrees with current treatment plan. Patient advised to medically contact physician/emergency personnel if any acute changes in condition occur. Vital Signs Temp 97.9 F 03/20/23 06:18 Pulse 120 H 03/20/23 06:18 Resp 17 03/20/23 06:18 BP 115/75 03/20/23 06:18 Pulse Ox 97 03/20/23 06:18 FiO2 Intake & Output 03/22/23 03/23/23 03/23/23 18:59 06:59 18:59 Weight 78.3 kg Laboratory Results WBC 4.7 k/uL (3.8-10.6) 03/19/23 07:32 RBC 4.38 m/uL (3.80-5.40) 03/19/23 07:32 Hgb 13.3 gm/dL (11.4-16.0) 03/19/23 07:32 Hct 41.2 % (34.0-46.0) 03/19/23 07:32 MCV 94.2 fL (80.0-100.0) 03/19/23 07:32 MCH 30.4 pg (25.0-35.0) 03/19/23 07:32 MCHC 32.3 g/dL (31.0-37.0) 03/19/23 07:32 RDW 12.3 % (11.5-15.5) 03/19/23 07:32 Plt Count 274 k/uL (150-450) 03/19/23 07:32 MPV 7.0 03/19/23 07:32 Neutrophils % 62 % 03/19/23 07:32 Lymphocytes % 30 % 03/19/23 07:32 Monocytes % 5 % 03/19/23 07:32 Eosinophils % 1 % 03/19/23 07:32 Basophils % 0 % 03/19/23 07:32 Neutrophils # 2.9 k/uL (1.3-7.7) 03/19/23 07:32 Lymphocytes # 1.4 k/uL (1.0-4.8) 03/19/23 07:32 Monocytes # 0.2 k/uL (0-1.0) 03/19/23 07:32 Eosinophils # 0.0 k/uL (0-0.7) 03/19/23 07:32 Basophils # 0.0 k/uL (0-0.2) 03/19/23 07:32 Sodium 139 mmol/L (137-145) 03/19/23 07:32 Potassium 4.6 mmol/L (3.5-5.1) 03/19/23 07:32 Chloride 101 mmol/L (98-107) 03/19/23 07:32 Carbon Dioxide 28 mmol/L (22-30) 03/19/23 07:32 Anion Gap 10 mmol/L 03/19/23 07:32 BUN 9 mg/dL (7-17) 03/19/23 07:32 Creatinine 0.64 mg/dL (0.52-1.04) 03/19/23 07:32 Est GFR (CKD-EPI)AfAm >90 (>60 ml/min/1.73 sqM) 03/19/23 07:32 Est GFR (CKD-EPI)NonAf >90 (>60 ml/min/1.73 sqM) 03/19/23 07:32 Glucose 87 mg/dL (74-99) 03/19/23 07:[address] Glu mg/dL 97 mg/dL 03/19/23 07:32 Hemoglobin A1c 5.0 % (<=6.0) 03/19/23 07:32 Calcium 9.2 mg/dL (8.4-10.2) 03/19/23 07:32 Total Bilirubin 0.7 mg/dL (0.2-1.3) 03/19/23 07:32 AST 29 U/L (14-36) 03/19/23 07:32 ALT 20 U/L (4-34) 03/19/23 07:32 Alkaline Phosphatase 54 U/L (38-126) 03/19/23 07:32 Total Protein 7.6 g/dL (6.3-8.2) 03/19/23 07:32 Albumin 4.2 g/dL (3.5-5.0) 03/19/23 07:32 TSH 0.567 mIU/L (0.465-4.680) 03/19/23 07:32 Urine Color Light Yellow 03/18/23 14:44 Urine Appearance Clear (Clear) 03/18/23 14:44 Urine pH 5.5 (5.0-8.0) 03/18/23 14:44 Ur Specific [place] 1.008 (1.001-1.035) 03/18/23 14:44 Urine Protein Negative (Negative) 03/18/23 14:44 Ur Protein Confirm Not Reportable 03/18/23 14:44 Urine Glucose (UA) Negative (Negative) 03/18/23 14:44 Urine Ketones Negative (Negative) 03/18/23 14:44 Urine Blood Negative (Negative) 03/18/23 14:44 Urine Nitrite Negative (Negative) 03/18/23 14:44 Urine Bilirubin Negative (Negative) 03/18/23 14:44 Ur Bilirubin Confirm Not Reportable 03/18/23 14:44 Urine Urobilinogen <2.0 mg/dL (<2.0) 03/18/23 14:44 Ur Leukocyte Esterase Negative (Negative) 03/18/23 14:44 Urine HCG, Qual Not Detected (Not Detectd) 03/18/23 17:37 Urine Opiates Screen Not Detected (NotDetected) 03/18/23 14:44 Ur Oxycodone Screen Not Detected (NotDetected) 03/18/23 14:44 Urine Methadone Screen Not Detected (NotDetected) 03/18/23 14:44 Ur Propoxyphene Screen Not Detected (NotDetected) 03/18/23 14:44 Ur Barbiturates Screen Not Detected (NotDetected) 03/18/23 14:44 U Tricyclic Antidepress Not Detected (NotDetected) 03/18/23 14:44 Ur Phencyclidine Scrn Not Detected (NotDetected) 03/18/23 14:44 Ur Amphetamines Screen Not Detected (NotDetected) 03/18/23 14:44 U Methamphetamines Scrn Not Detected (NotDetected) 03/18/23 14:44 U Benzodiazepines Scrn Not Detected (NotDetected) 03/18/23 14:44 Urine Cocaine Screen Not Detected (NotDetected) 03/18/23 14:44 U Marijuana (THC) Screen Not Detected (NotDetected) 03/18/23 14:44 Coronavirus (PCR) Not Detected (Not Detectd) 03/18/23 15:51 Allergies Allergy/AdvReac Type Severity Reaction Status Date / Time No Known Allergies Allergy Verified 03/18/23 15:47 Patient Condition at Discharge: Stable Plan - Discharge Summary Discharge Rx Participant: No New Discharge Prescriptions: New OXcarbazepine [Trileptal] 300 mg PO BID 30 Days #60 tab hydrOXYzine pamoate [Vistaril] 25 mg PO TID PRN 7 Days #21 capsule PRN Reason: For allergies Melatonin 10 mg PO HS 30 Days #60 tab Ibuprofen 600 mg PO TID PRN 7 Days #21 tab PRN Reason: For Pain Continue Carboxymethylcell/Glycerin/Pf [Refresh Relieva Pf 0.5-1% Drop] 1 drop BOTH EYES Q2H Discontinued Amoxicillin 500 mg PO BID Discharge Medication List Carboxymethylcell/Glycerin/Pf [Refresh Relieva Pf 0.5-1% Drop] 1 drop BOTH EYES Q2H 03/18/23 [History] Ibuprofen 600 mg PO TID PRN 7 Days #21 tab 03/23/23 [Rx] Melatonin 10 mg PO HS 30 Days #60 tab 03/23/23 [Rx] OXcarbazepine [Trileptal] 300 mg PO BID 30 Days #60 tab 03/23/23 [Rx] hydrOXYzine pamoate [Vistaril] 25 mg PO TID PRN 7 Days #21 capsule 03/23/23 [Rx] Follow up Appointment(s)/Referral(s): [facility] [Outside] - 03/26/23 9:00 am Poli Christy MD [Primary Care Provider] - 1-2 days Patient Instructions/Handouts: Trigeminal Neuralgia (DC), Conversion Disorder (DC) Activity/Diet/Wound Care/Special Instructions: Avoid the use of street drugs and alcohol. Take all medications as prescribed. When you are in need of refills on your medications, please contact your medical provider and/or outpatient psychiatrist to have this done. Please go to scheduled outpatient appointments for aftercare treatment. If symptoms return or become worse, call the crisis line at and/or go to the nearest emergency room for evaluation. Discharge Disposition: HOME SELF-CARE
== END 2023-03-23 14:12 | disposition home or self-care (01) | DRG 755 ==
LOC: EC 13:03 → 3MHU 17:25
PROVIDERS: ADMIT Psychiatry & Neurology Psychiatry; ATTEND Psychiatry & Neurology Psychiatry
DX: F45.41 Pain disorder exclusively related to psychological factors (principal); R45.851 Suicidal ideations; G47.00 Insomnia, unspecified; Z20.822 Contact with and (suspected) exposure to COVID-19; H10.9 Unspecified conjunctivitis; J30.9 Allergic rhinitis, unspecified; Z87.891 Personal history of nicotine dependence; Z79.899 Other long term (current) drug therapy; Z76.5 Malingerer [conscious simulation]
CPT/HCPCS: 80053; 80306; 81003; 81025; 82075; 83036; 84443; 85025; 87086; 87635; 99285

== ENCOUNTER 2023-05-22 10:02 | Emergency (ER) | payer OTHER ==
[2023-05-22] MEDS ORDERED: CIPROFLOXACIN-DEXAMETH 0.3-0.1% DROPS 7.5 ML BTL BOTH EARS STA (10:52)
[2023-05-22] MEDS ORDERED: IPRATROPIUM BROMIDE 0.06% NASAL SPRAY (15 ML) NASAL STA (10:52)
[2023-05-22] MEDS ORDERED: DEXAMETHASONE SOD PHOSPHATE 10 MG/ML 1 ML VIAL IM STA (10:53)
--- NOTE | 2023-05-22 10:57 | ED ---
ENT HPI - General Chief complaint: ENT Stated complaint: ear pain Time Seen by Provider: 05/22/23 10:32 Source: patient, RN notes reviewed Mode of arrival: ambulatory Limitations: no limitations - History of Present Illness Initial comments: This is a 42-year-old female who presents to the emergency department for left ear pain. She was seen at [facility] on 05/10 for the same problem. She was put on a Z-Victor M and a course of steroids, but believes that she has not gotten any better. Also notes that she has continued to have postnasal drainage. She has continued to use Singulair, Claritin, and Flonase nasal spray. Denies any fevers, chills, dyspnea, chest pain, palpitations, abdominal pain, nausea, vomiting, diarrhea, back pain, or headaches. MD complaint: ear pain - Related Data Home Medications Medication Instructions Recorded Confirmed Carboxymethylcell/Glycerin/Pf 1 drop BOTH EYES Q2H 03/18/23 03/18/23 [Refresh Relieva Pf 0.5-1% Drop] Previous Rx's Medication Instructions Recorded Ibuprofen 600 mg PO TID PRN 7 Days #21 tab 03/23/23 Melatonin 10 mg PO HS 30 Days #60 tab 03/23/23 OXcarbazepine [Trileptal] 300 mg PO BID 30 Days #60 tab 03/23/23 hydrOXYzine pamoate [Vistaril] 25 mg PO TID PRN 7 Days #21 capsule 03/23/23 Allergies Allergy/AdvReac Type Severity Reaction Status Date / Time No Known Allergies Allergy Verified 05/24/23 02:17 Review of Systems ROS Statement: Those systems with pertinent positive or pertinent negative responses have been documented in the HPI. ROS Other: All systems not noted in ROS Statement are negative. Past Medical History Past Medical History: No Reported History History of Any Multi-Drug Resistant Organisms: None Reported Additional Past Surgical History / Comment(s): Gluteal Implants 2018 Past Psychological History: No Psychological Hx Reported Smoking Status: Former smoker Past Alcohol Use History: Rare Past Drug Use History: None Reported General Exam Limitations: no limitations General appearance: alert, in no apparent distress Head exam: Present: atraumatic, normocephalic, normal inspection ENT exam: Present: other (Left canal erythema) Respiratory exam: Present: normal lung sounds bilaterally. Absent: respiratory distress, wheezes, rales, rhonchi, stridor Cardiovascular Exam: Present: regular rate, normal rhythm, normal heart sounds. Absent: systolic murmur, diastolic murmur, rubs, gallop, clicks Neurological exam: Present: alert, oriented X3, CN II-XII intact Psychiatric exam: Present: normal affect, normal mood Skin exam: Present: warm, dry, intact, normal color. Absent: rash Course Vital Signs 05/22/23 05/22/23 10:11 11:27 Temperature 98.6 F 98.4 F Pulse Rate 91 79 Respiratory 20 18 Rate Blood Pressure 130/76 132/81 O2 Sat by Pulse 96 97 Oximetry Medical Decision Making - Medical Decision Making This is a 42-year-old female who presents to the emergency department for left ear pain and postnasal drip. Was pt. sent in by a medical professional or institution? @ -No Did you speak to anyone other than the patient for history? @ -No Did you review nursing and triage notes? @ -Yes, and I agree, it is accurate with regards to the patient's symptoms. Were old charts reviewed? @ -No Differential Diagnosis? @ -Differential Ear Pain: Otitis media, otitis externa, eustachian tube dysfunction, allergic rhinitis, barotrauma, bullous myringitis, this is not meant to be an all-inclusive list. EKG interpreted by me (3pts min.)? @ -Not obtained X-rays interpreted by me (1pt min.)? @ -Not obtained CT interpreted by me (1pt min.)? @ -Not obtained U/S interpreted by me (1pt. min.)? @ -Not obtained What testing was considered but not performed? (CT, X-rays, U/S, labs)? Why? @ -None What meds were considered but not given? Why? @ -None Did you discuss the management of the patient with other professionals? @ -No Did you reconcile home meds? @ -No Was smoking cessation discussed for >3mins.? @ -No Was critical care preformed (if so, how long)? @ -No Were there social determinants of health that impacted care today? How? (Homelessness, low income, unemployed, alcoholism, drug addiction, transportation, low edu. Level, literacy, decrease access to med. care, halfway, rehab)? @ -No Was there de-escalation of care discussed even if they declined? (Discuss DNR or withdrawal of care, Hospice)? @ -No What co-morbidities impacted this encounter? (DM, HTN, Smoking, COPD, CAD, Cancer, CVA, Hep., AIDS, mental health diagnosis, sleep apnea, morbid obesity)? @ -None Was patient admitted / discharged? @ -Discharged. On physical exam she had questionable left canal erythema. She was given a bottle of Ciprodex drops in the emergency department. She was also given a bottle of ipratropium nasal spray for the post nasal drainage she has been experiencing. Advised she continue with OTC antihistamines as well. Information for ENT follow up provided. She is advised to contact them for further evaluation of ongoing symptoms. Undiagnosed new problem with uncertain prognosis? @ -None Drug Therapy requiring intensive monitoring for toxicity (Heparin, Nitro, Insulin, Cardizem)? @ -None Were any procedures done? @ -None Diagnosis/symptom? @ -Otitis externa, post nasal drip, allergic rhinitis Acute, or Chronic, or Acute on Chronic? @ -Acute Uncomplicated (without systemic symptoms) or Complicated (systemic symptoms)? @ -Uncomplicated Side effects of treatment? @ -None Exacerbation, Progression, or Severe Exacerbation] @ -Not applicable Poses a threat to life or bodily function? @ -No Return precautions reviewed in depth, the patient is instructed to return to the emergency department with any new, worsening, or concerning symptoms. Patient verbalized understanding. This case was discussed in detail with the attending ED physician, Dr. Dallas. Presentation, findings, and treatment plan discussed in detail as well. Disposition Clinical Impression: Otitis externa, Post-nasal drip, Allergic rhinitis Disposition: HOME SELF-CARE Instructions (If sedation given, give patient instructions): Swimmer's Ear (ED), Allergic Rhinitis (ED) Additional Instructions: Return to the emergency department with any new, worsening, or concerning symptoms. Apply the eardrops as 4 drops to both ears twice daily for 7 days. You can use the provided nasal spray 3-4 times daily to help with the postnasal drainage. Continue to use Flonase nasal spray and the antihistamine such as Singulair and Claritin as needed for ongoing symptoms as well. Contact the ENT office as listed below for ongoing management of your symptoms. Is patient prescribed a controlled substance at d/c from ED?: No Referrals: Poli Christy [Primary Care Provider] - 1-2 days Dakota Morataya MD [STAFF PHYSICIAN] - 1-2 days
[2023-05-22 11:28] VITALS: BP 132/81; PULSE 79; RESP 18; TEMP 98.4
== END 2023-05-22 11:28 | disposition home or self-care (01) ==
LOC: EC 10:02
DX: H60.92 Unspecified otitis externa, left ear (principal); R09.82 Postnasal drip; J30.9 Allergic rhinitis, unspecified; Z87.891 Personal history of nicotine dependence
CPT/HCPCS: 99282; 96372; J1100

== ENCOUNTER 2023-05-24 02:05 | Emergency (ER) | payer OTHER ==
[2023-05-24 02:17] VITALS: RESP 18
--- NOTE | 2023-05-24 03:08 | ED ---
ENT HPI - General Chief complaint: ENT Stated complaint: Ear infection Time Seen by Provider: 05/24/23 02:33 Source: patient Mode of arrival: ambulatory Limitations: no limitations - History of Present Illness Initial comments: 's patient is a 42-year-old woman who presents to have second opinion regarding ear pain. The patient states that she has been having some left ear pain, she indicates the area of the tragus. She states that there is tenderness if she presses on that area. She was seen at the other hospital, diagnosed with otitis externa and given drops to use. She states she had been using these for a day and a half and she is having some improvement and wonders if she should stop using them. Patient also notes she is having some postnasal drainage MD complaint: ear pain -: days(s) Location: L ear, nose Severity: mild Quality: dull Consistency: intermittent Improves with: none Worsens with: other (Palpation) Associated Symptoms: sore throat - Related Data Home Medications Medication Instructions Recorded Confirmed Carboxymethylcell/Glycerin/Pf 1 drop BOTH EYES Q2H 03/18/23 03/18/23 [Refresh Relieva Pf 0.5-1% Drop] Previous Rx's Medication Instructions Recorded Ibuprofen 600 mg PO TID PRN 7 Days #21 tab 03/23/23 Melatonin 10 mg PO HS 30 Days #60 tab 03/23/23 OXcarbazepine [Trileptal] 300 mg PO BID 30 Days #60 tab 03/23/23 hydrOXYzine pamoate [Vistaril] 25 mg PO TID PRN 7 Days #21 capsule 03/23/23 Fluticasone Nasal [place] [Flonase 2 spray EA NOSTRIL DAILY #16 gm 05/30/23 Nasal [place]] Allergies Allergy/AdvReac Type Severity Reaction Status Date / Time No Known Allergies Allergy Verified 05/31/23 14:28 Review of Systems ROS Statement: Those systems with pertinent positive or pertinent negative responses have been documented in the HPI. ROS Other: All systems not noted in ROS Statement are negative. Constitutional: Denies: fever, chills, weakness Eyes: Denies: vision change ENT: Reports: as per HPI, ear pain Cardiovascular: Denies: palpitations Gastrointestinal: Denies: abdominal pain, vomiting Genitourinary: Denies: dysuria, hematuria Musculoskeletal: Denies: back pain Skin: Denies: rash Neurological: Denies: headache Past Medical History Past Medical History: No Reported History History of Any Multi-Drug Resistant Organisms: None Reported Additional Past Surgical History / Comment(s): Gluteal Implants 2018 Past Psychological History: No Psychological Hx Reported Smoking Status: Former smoker Past Alcohol Use History: Rare Past Drug Use History: None Reported General Exam Limitations: no limitations General appearance: alert, in no apparent distress Head exam: Present: atraumatic, normocephalic Eye exam: Present: normal appearance, PERRL, EOMI. Absent: scleral icterus, conjunctival injection ENT exam: Present: normal oropharynx, TM's normal bilaterally (Right tympanic membrane is normal, the left has just trace of erythema and dullness. Tenderness of the tragus) Neck exam: Present: normal inspection, full ROM. Absent: tenderness, meningismus, lymphadenopathy Respiratory exam: Present: normal lung sounds bilaterally. Absent: respiratory distress, wheezes, rales, rhonchi, stridor Cardiovascular Exam: Present: regular rate, normal rhythm, normal heart sounds. Absent: systolic murmur, diastolic murmur Extremities exam: Present: normal inspection, normal capillary refill Neurological exam: Present: alert Skin exam: Present: warm, dry, intact, normal color. Absent: rash Course Vital Signs 05/24/23 05/24/23 02:15 03:10 Temperature 98.2 F 98.1 F Pulse Rate 90 87 Respiratory 18 18 Rate Blood Pressure 131/89 121/68 O2 Sat by Pulse 99 100 Oximetry Medical Decision Making - Medical Decision Making Was pt. sent in by a medical professional or institution (, PA, BODY WORK AUTO TRIMMER, urgent care, hospital, or care home...) When possible be specific @ -[No] Did you speak to anyone other than the patient for history (EMS, parent, family, police, friend...)? What history was obtained from this source @ -[No] Did you review nursing and triage notes (agree or disagree)? Why? @ -[I reviewed and agree with nursing and triage notes] Were old charts reviewed (outside hosp., previous admission, EMS record, old EKG, old radiological studies, urgent care reports/EKG's, care home records)? Report findings @ -[No old charts were reviewed] Differential Diagnosis (chest pain, altered mental status, abdominal pain women, abdominal pain men, vaginal bleeding, weakness, fever, dyspnea, syncope, headache, dizziness, GI bleed, back pain, seizure, CVA, palpatations, mental health, musculoskeletal)? @ -[Differential diagnosis for patient's ear pain and congestion includes upper respiratory infection, otitis media, otitis externa, mastoiditis, cellulitis, among other conditions EKG interpreted by me (3pts min.). @ -[As above] X-rays interpreted by me (1pt min.). @ -[None done] CT interpreted by me (1pt min.). @ -[None done] U/S interpreted by me (1pt. min.). @ -[None done] What testing was considered but not performed or refused? (CT, X-rays, U/S, labs)? Why? @ -[None] What meds were considered but not given or refused? Why? @ -[None] Did you discuss the management of the patient with other professionals (professionals i.e. , PA, BODY WORK AUTO TRIMMER, lab, RT, psych nurse, social worker assistant, climatology professor, teacher, vessel traffic officer, case management director)? Give summary @ -[No] Was smoking cessation discussed for >3mins.? @ -[No] Was critical care preformed (if so, how long)? @ -[No] Were there social determinants of health that impacted care today? How? (Homelessness, low income, unemployed, alcoholism, drug addiction, transportation, low edu. Level, literacy, decrease access to med. care, custodial, rehab)? @ -[No] Was there de-escalation of care discussed even if they declined (Discuss DNR or withdrawal of care, Hospice)? DNR status @ -[No] What co-morbidities impacted this encounter? (DM, HTN, Smoking, COPD, CAD, Cancer, CVA, ARF, Chemo, Hep., AIDS, mental health diagnosis, sleep apnea, morbid obesity)? @ -[None] Was patient admitted / discharged? Hospital course, mention meds given and route, prescriptions, significant lab abnormalities, going to OR and other pertinent info. @ -[Patient is advised to finish her course of antibiotics. We discussed appropriate further care and follow-up as well as return parameters. Undiagnosed new problem with uncertain prognosis? @ -[No] Drug Therapy requiring intensive monitoring for toxicity (Heparin, Nitro, Insulin, Cardizem)? @ -[No] Were any procedures done? @ -[No] Diagnosis/symptom? @ -[Acute otitis externa ALLERGIC rhinitis Acute, or Chronic, or Acute on Chronic? @ -[Acute Uncomplicated (without systemic symptoms) or Complicated (systemic symptoms)? @ -Uncomplicated Side effects of treatment? @ -[No] Exacerbation, Progression, or Severe Exacerbation? @ -[No] Poses a threat to life or bodily function? How? (Chest pain, [place], [place], pneumonia, PE, COPD, DKA, ARF, appy, cholecystitis, CVA, Diverticulitis, Homicidal, Suicidal, threat to staff... and all critical care pts) @ -[No] Disposition Clinical Impression: Otitis externa, Allergic rhinitis Disposition: HOME SELF-CARE Condition: Good Instructions (If sedation given, give patient instructions): Allergic Rhinitis (ED), Earache (ED) Is patient prescribed a controlled substance at d/c from ED?: No Referrals: Poli Christy [Primary Care Provider] - 1-2 days
[2023-05-24 03:18] VITALS: BP 121/68; PULSE 87; TEMP 98.1
== END 2023-05-24 03:18 | disposition home or self-care (01) ==
LOC: EC 02:05
DX: H60.392 Other infective otitis externa, left ear (principal); J30.9 Allergic rhinitis, unspecified; Z87.891 Personal history of nicotine dependence
CPT/HCPCS: 99282

== ENCOUNTER 2023-05-26 12:55 | Emergency (ER) | payer OTHER ==
[2023-05-26 13:11] VITALS: BP 142/90; PULSE 100; RESP 20; TEMP 98
--- NOTE | 2023-05-26 13:13 | ED ---
General Adult HPI - General Source: patient <Nithya Gray - Last Filed: 05/26/23 13:09> <Chang Cherry - Last Filed: 05/26/23 14:51> - General Chief complaint: Recheck/Abnormal Lab/Rx Stated complaint: Arm and Neck Pain Time Seen by Provider: 05/26/23 13:11 - History of Present Illness Initial comments: Patient is a 42 year old AAF presenting to the ER with multiple complaints including neck pain, abdominal pain, fatigue, weakness, "white rice in her phelgm," generalized itching and perineal itching with the inability to define any aggravating or alleviating factors or identify any exact onset timeframe of all of her symptoms. She reports that she is currently being treated for a "eye infection" (Nithya Gray) - Related Data Home Medications Medication Instructions Recorded Confirmed Carboxymethylcell/Glycerin/Pf 1 drop BOTH EYES Q2H 03/18/23 03/18/23 [Refresh Relieva Pf 0.5-1% Drop] Previous Rx's Medication Instructions Recorded Ibuprofen 600 mg PO TID PRN 7 Days #21 tab 03/23/23 Melatonin 10 mg PO HS 30 Days #60 tab 03/23/23 OXcarbazepine [Trileptal] 300 mg PO BID 30 Days #60 tab 03/23/23 hydrOXYzine pamoate [Vistaril] 25 mg PO TID PRN 7 Days #21 capsule 03/23/23 Allergies Allergy/AdvReac Type Severity Reaction Status Date / Time No Known Allergies Allergy Verified 05/24/23 02:17 Review of Systems ROS Other: All systems not noted in ROS Statement are negative. <Nithya Gray - Last Filed: 05/26/23 13:09> ROS Other: All systems not noted in ROS Statement are negative. <Chang Cherry - Last Filed: 05/26/23 14:51> ROS Statement: Those systems with pertinent positive or pertinent negative responses have been documented in the HPI. Past Medical History Past Medical History: No Reported History History of Any Multi-Drug Resistant Organisms: None Reported Additional Past Surgical History / Comment(s): Gluteal Implants 2018 Past Psychological History: No Psychological Hx Reported Smoking Status: Former smoker Past Alcohol Use History: Rare Past Drug Use History: None Reported <Nithya Gray - Last Filed: 05/26/23 13:09> General Exam <Nithya Gray - Last Filed: 05/26/23 13:09> General appearance: alert, in no apparent distress Head exam: Present: atraumatic, normocephalic Eye exam: Present: normal appearance, PERRL ENT exam: Present: normal exam Neck exam: Present: normal inspection. Absent: tenderness, meningismus Respiratory exam: Present: normal lung sounds bilaterally. Absent: respiratory distress, wheezes Cardiovascular Exam: Present: regular rate, normal rhythm GI/Abdominal exam: Present: soft. Absent: distended, tenderness, guarding Extremities exam: Present: normal inspection, normal capillary refill. Absent: pedal edema Neurological exam: Present: alert, oriented X3, CN II-XII intact. Absent: motor sensory deficit Psychiatric exam: Present: other (Delusional, not suicidal or homicidal) Skin exam: Present: warm, dry, intact. Absent: cyanosis, diaphoretic <Chang Cherry - Last Filed: 05/26/23 14:51> - General Exam Comments Initial Comments: Visual Physical Exam Vital signs reviewed General: Well-appearing, nontoxic, no acute distress. Head: Normocephalic, atraumatic Eyes: PERRLA, EOMI ENT: Airway patent Chest: Nonlabored breathing Skin: No visual rash, normal skin tone Neuro: Alert and oriented 3 Musculoskeletal: No gross abnormalities I performed with the Quicknote portion Nithya Gray MUSIC TEACHER-c (Nithya Gray) Course Vital Signs 05/26/23 13:08 Temperature 98 F Pulse Rate 100 Respiratory 20 Rate Blood Pressure 142/90 O2 Sat by Pulse 99 Oximetry Medical Decision Making <Chang Cherry - Last Filed: 05/26/23 14:51> - Medical Decision Making Was pt. sent in by a medical professional or institution (, PA, MUSIC TEACHER, urgent care, hospital, or usp...) When possible be specific @ -No Did you speak to anyone other than the patient for history (EMS, parent, family, police, friend...)? What history was obtained from this source @ -No Did you review nursing and triage notes (agree or disagree)? Why? @ -I reviewed and agree with nursing and triage notes Were old charts reviewed (outside hosp., previous admission, EMS record, old EKG, old radiological studies, urgent care reports/EKG's, usp records)? Report findings @ -No old charts were reviewed Differential Diagnosis (chest pain, altered mental status, abdominal pain women, abdominal pain men, vaginal bleeding, weakness, fever, dyspnea, syncope, headache, dizziness, GI bleed, back pain, seizure, CVA, palpatations, mental health, musculoskeletal)? @ -[Upper respiratory infection, urinary tract infection, psychosis EKG interpreted by me (3pts min.). @ -As above X-rays interpreted by me (1pt min.). @ -None done CT interpreted by me (1pt min.). @ -None done U/S interpreted by me (1pt. min.). @ -None done What testing was considered but not performed or refused? (CT, X-rays, U/S, labs)? Why? @ -None What meds were considered but not given or refused? Why? @ -None Did you discuss the management of the patient with other professionals (professionals i.e. , PA, MUSIC TEACHER, lab, RT, psych nurse, director social service, bed laster, teacher, access control officer, manager rn case)? Give summary @ -No Was smoking cessation discussed for >3mins.? @ -No Was critical care preformed (if so, how long)? @ -No Were there social determinants of health that impacted care today? How? (Homel essness, low income, unemployed, alcoholism, drug addiction, transportation, low edu. Level, literacy, decrease access to med. care, correction, rehab)? @ -No Was there de-escalation of care discussed even if they declined (Discuss DNR or withdrawal of care, Hospice)? DNR status @ -No What co-morbidities impacted this encounter? (DM, HTN, Smoking, COPD, CAD, Cancer, CVA, ARF, Chemo, Hep., AIDS, mental health diagnosis, sleep apnea, morbid obesity)? @ History of schizophrenia Was patient admitted / discharged? Hospital course, mention meds given and route, prescriptions, significant lab abnormalities, going to OR and other pertinent info. @ 32-year-old female with multiple complaints, neck pain, arm pain, rice like objects in her phlegm, dysuria with black speckling in her urine. Patient does seem to be delusional although she is alert and not complaining of suicidal or homicidal ideation. She is afebrile with stable vitals. No traumatic injuries reported. No external signs of trauma. Patient receives urinalysis in the emergency department. Which is unremarkable Undiagnosed new problem with uncertain prognosis? @ -No Drug Therapy requiring intensive monitoring for toxicity (Heparin, Nitro, Ins ulin, Cardizem)? @ -No Were any procedures done? @ -No Diagnosis/symptom? @ -[Cough, dysuria Acute, or Chronic, or Acute on Chronic? @ -[Acute Uncomplicated (without systemic symptoms) or Complicated (systemic symptoms)? @ -default Side effects of treatment? @ -No Exacerbation, Progression, or Severe Exacerbation? @ -No Poses a threat to life or bodily function? How? (Chest pain, [place], [place], pneumonia, PE, COPD, DKA, ARF, appy, cholecystitis, CVA, Diverticulitis, Homicidal, Suicidal, threat to staff... and all critical care pts) @ -No (Chang Cherry) - Lab Data Lab Results 05/26/23 Range/Units 14:30 Urine Color Yellow Urine Appearance Clear (Clear) Urine pH 6.5 (5.0-8.0) Ur Specific [place] 1.012 (1.001-1.035) Urine Protein Negative (Negative) Urine Glucose (UA) Negative (Negative) Urine Ketones Negative (Negative) Urine Blood Negative (Negative) Urine Nitrite Negative (Negative) Urine Bilirubin Negative (Negative) Urine Urobilinogen <2.0 (<2.0) mg/dL Ur Leukocyte Esterase Trace H (Negative) Urine RBC 1 (0-5) /hpf Urine WBC 3 (0-5) /hpf Ur Squamous Epith Cells 3 (0-4) /hpf Urine Mucus Rare H (None) /hpf Disposition <Nithya Gray - Last Filed: 05/26/23 13:09> Is patient prescribed a controlled substance at d/c from ED?: No Time of Disposition: 14:50 <Chang Cherry - Last Filed: 05/26/23 14:51> Clinical Impression: Somatic symptom disorder, persistent, severe Disposition: HOME SELF-CARE Condition: Fair Instructions (If sedation given, give patient instructions): Dysuria (ED) Referrals: Poli Christy [Primary Care Provider] - 1-2 days
[2023-05-26 14:48] LABS: Appearance,Urine Clear (Clear); Bilirubin,Urine Negative (Negative); Blood,Urine Negative (Negative); Color,Urine Yellow; Glucose,Urine (UA) Negative (Negative); Ketones,Urine Negative (Negative); Leukocyte Esterase,Urine Trace (Negative); Mucus,Urine Rare /hpf; Nitrite,Urine Negative (Negative); PH, Urine 6.5 (5.0-8.0); Protein,Urine Negative (Negative); RBC,Urine 1 /hpf (0-5); Specific Gravity,Urine 1.012 (1.001-1.035); Squamous Epithelial Cell,Urine 3 /hpf (0-4); Urobilinogen,Urine <2.0 mg/dL (<2.0); WBC,Urine 3 /hpf (0-5)
== END 2023-05-26 15:03 | disposition home or self-care (01) ==
LOC: EC 12:55
DX: F45.1 Undifferentiated somatoform disorder (principal); R30.0 Dysuria; Z87.891 Personal history of nicotine dependence
CPT/HCPCS: 81001; 99283

== ENCOUNTER 2023-05-30 01:27 | Emergency (ER) | payer OTHER ==
[2023-05-30 01:34] VITALS: RESP 18; TEMP 98
[2023-05-30] MEDS ORDERED: SODIUM CHLORIDE 0.9% 1,000 ML IV STA (01:56)
[2023-05-30] MEDS ORDERED: KETOROLAC 15 MG/ML 1 ML VIAL IVP STA (01:56)
[2023-05-30] MEDS ORDERED: ONDANSETRON 4 MG/2 ML VIAL IVP STA (01:56)
--- NOTE | 2023-05-30 02:38 | ED ---
Abdominal Pain HPI - General Chief Complaint: Abdominal Pain Stated Complaint: Nausea, Abdominal Pain, Sinus Pressure Time Seen by Provider: 05/30/23 01:38 Source: patient Mode of arrival: ambulatory Limitations: no limitations - History of Present Illness Initial Comments: 42-year-old female presenting with chief complaint of sinus pain and left lower quadrant pain. Patient states that she has had sinus pain for 6 months. She states she has intermittent sinus pressure and pressure behind the eyes. No nasal discharge, fever, chills, cough, congestion, sore throat. Left lower quadrant pain has been ongoing for about 2 days. Intermittent nausea with no vomiting. No diarrhea or hematochezia. No dysuria or hematuria. No fevers or chills. - Related Data Home Medications Medication Instructions Recorded Confirmed Carboxymethylcell/Glycerin/Pf 1 drop BOTH EYES Q2H 03/18/23 03/18/23 [Refresh Relieva Pf 0.5-1% Drop] Previous Rx's Medication Instructions Recorded Ibuprofen 600 mg PO TID PRN 7 Days #21 tab 03/23/23 Melatonin 10 mg PO HS 30 Days #60 tab 03/23/23 OXcarbazepine [Trileptal] 300 mg PO BID 30 Days #60 tab 03/23/23 hydrOXYzine pamoate [Vistaril] 25 mg PO TID PRN 7 Days #21 capsule 03/23/23 Fluticasone Nasal [place] [Flonase 2 spray EA NOSTRIL DAILY #16 gm 05/30/23 Nasal [place]] Allergies Allergy/AdvReac Type Severity Reaction Status Date / Time No Known Allergies Allergy Verified 05/24/23 02:17 Review of Systems ROS Statement: Those systems with pertinent positive or pertinent negative responses have been documented in the HPI. ROS Other: All systems not noted in ROS Statement are negative. Past Medical History Past Medical History: No Reported History History of Any Multi-Drug Resistant Organisms: None Reported Additional Past Surgical History / Comment(s): Gluteal Implants 2018 Past Psychological History: No Psychological Hx Reported Smoking Status: Former smoker Past Alcohol Use History: Rare Past Drug Use History: None Reported General Exam Limitations: no limitations General appearance: alert, in no apparent distress Head exam: Present: atraumatic, normocephalic, normal inspection Eye exam: Present: normal appearance, EOMI ENT exam: Present: normal exam, normal oropharynx, mucous membranes moist, TM's normal bilaterally Neck exam: Present: normal inspection, full ROM Respiratory exam: Present: normal lung sounds bilaterally. Absent: respiratory distress, wheezes, rales, rhonchi, stridor Cardiovascular Exam: Present: regular rate, normal rhythm, normal heart sounds. Absent: systolic murmur, diastolic murmur, rubs, gallop, clicks GI/Abdominal exam: Present: soft, tenderness (LLQ). Absent: distended, guarding, rebound, rigid Neurological exam: Present: alert, oriented X3, CN II-XII intact Psychiatric exam: Present: normal affect, normal mood Skin exam: Present: warm, dry, intact, normal color. Absent: rash Course Vital Signs 05/30/23 05/30/23 01:30 03:33 Temperature 98 F Pulse Rate 102 H 78 Respiratory 18 18 Rate Blood Pressure 140/82 136/99 O2 Sat by Pulse 98 99 Oximetry Medical Decision Making - Medical Decision Making Was pt. sent in by a medical professional or institution (, PA, CATHODE BUILDER, urgent care, hospital, or half-way...) When possible be specific @ -No Did you speak to anyone other than the patient for history (EMS, parent, family, police, friend...)? What history was obtained from this source @ -No Did you review nursing and triage notes (agree or disagree)? Why? @ -I reviewed and agree with nursing and triage notes Were old charts reviewed (outside hosp., previous admission, EMS record, old EKG, old radiological studies, urgent care reports/EKG's, half-way records)? Report findings @ -No old charts were reviewed Differential Diagnosis (chest pain, altered mental status, abdominal pain women, abdominal pain men, vaginal bleeding, weakness, fever, dyspnea, syncope, headache, dizziness, GI bleed, back pain, seizure, CVA, palpatations, mental health, musculoskeletal)? @ -MDM Differential Abdominal Pain Women: Appendicitis, Cholecystitis, diverticulosis, ischemic bowel, pancreatitis, hepatitis, UTI, gastroenteritis, AAA, incarcerated hernia, bowel obstruction, constipation, inflammatory bowel, hepatitis, peptic ulcer disease, splenic infarction, perforated viscus, vulvitis, ovarian torsion, PID, kidney stone, placenta abruption... This is not meant to be an all-inclusive list EKG interpreted by me (3pts min.). @ -As above X-rays interpreted by me (1pt min.). @ -None done CT interpreted by me (1pt min.). @ -No acute abdominal or pelvic process. Fibroid changes of the uterus with likely right ovarian 3.4 similar follicular cyst. Cosmetic changes of the bilateral gluteal regions. U/S interpreted by me (1pt. min.). @ -None done What testing was considered but not performed or refused? (CT, X-rays, U/S, labs)? Why? @ -None What meds were considered but not given or refused? Why? @ -None Did you discuss the management of the patient with other professionals (professionals i.e. Dr., PA, CATHODE BUILDER, lab, RT, psych nurse, secondary social studies teacher, field cashier, teacher, unarmed security officer, case consultant)? Give summary @ -No Was smoking cessation discussed for >3mins.? @ -No Was critical care preformed (if so, how long)? @ -No Were there social determinants of health that impacted care today? How? (Homelessness, low income, unemployed, alcoholism, drug addiction, transportation, low edu. Level, literacy, decrease access to med. care, snf, rehab)? @ -No Was there de-escalation of care discussed even if they declined (Discuss DNR or withdrawal of care, Hospice)? DNR status @ -No What co-morbidities impacted this encounter? (DM, HTN, Smoking, COPD, CAD, Cancer, CVA, ARF, Chemo, Hep., AIDS, mental health diagnosis, sleep apnea, morbid obesity)? @ -None Was patient admitted / discharged? Hospital course, mention meds given and route, prescriptions, significant lab abnormalities, going to OR and other pertinent info. @ -42-year-old female presenting with chief complaint of sinus pressure ongoing for 6 months and left sided abdominal pain. Physical examination is conducted. Lab work shows no leukocytosis or anemia. Urine shows no sign of infectious process and hCG is negative. CT shows no acute abdominal process. There are fibroid changes to the uterus. Patient was educated on fibroids and supportive management. Instructed to follow-up with her PCP. She is provided with Flonase for her sinus pressure. Follow-up with PCP. Report back to ER with any new or worsening symptoms. Discussed return parameters and answered all questions. Patient conveyed verbal understanding and agreed to the plan. I discussed this case in detail with my attending Dr. Salinas Undiagnosed new problem with uncertain prognosis? @ -No Drug Therapy requiring intensive monitoring for toxicity (Heparin, Nitro, Insulin, Cardizem)? @ -No Were any procedures done? @ -No Diagnosis/symptom? @ -Fibroids, rhinosinusitis Acute, or Chronic, or Acute on Chronic? @ -Acute Uncomplicated (without systemic symptoms) or Complicated (systemic symptoms)? @ -Uncomplicated Side effects of treatment? @ -No Exacerbation, Progression, or Severe Exacerbation? @ -No Poses a threat to life or bodily function? How? (Chest pain, [place], [place], pneumonia, PE, COPD, DKA, ARF, appy, cholecystitis, CVA, Diverticulitis, Homicidal, Suicidal, threat to staff... and all critical care pts) @ -No - Lab Data Result diagrams: 05/30/23 02:25 05/30/23 02:25 Lab Results 05/30/23 05/30/23 05/30/23 Range/Units 02:12 02:12 02:25 WBC 8.0 (3.8-10.6) k/uL RBC 4.49 (3.80-5.40) m/uL Hgb 13.5 (11.4-16.0) gm/dL Hct 41.2 (34.0-46.0) % MCV 91.7 (80.0-100.0) fL MCH 30.0 (25.0-35.0) pg MCHC 32.7 (31.0-37.0) g/dL RDW 13.3 (11.5-15.5) % Plt Count 276 (150-450) k/uL MPV 6.6 Neutrophils % 66 % Lymphocytes % 26 % Monocytes % 4 % Eosinophils % 2 % Basophils % 0 % Neutrophils # 5.3 (1.3-7.7) k/uL Lymphocytes # 2.1 (1.0-4.8) k/uL Monocytes # 0.3 (0-1.0) k/uL Eosinophils # 0.2 (0-0.7) k/uL Basophils # 0.0 (0-0.2) k/uL Sodium (137-145) mmol/L Potassium (3.5-5.1) mmol/L Chloride (98-107) mmol/L Carbon Dioxide (22-30) mmol/L Anion Gap mmol/L BUN (7-17) mg/dL Creatinine (0.52-1.04) mg/dL Est GFR (CKD-EPI)AfAm (>60 ml/min/1.73 sqM) Est GFR (CKD-EPI)NonAf (>60 ml/min/1.73 sqM) Glucose (74-99) mg/dL Plasma Lactic Acid [place] (0.7-2.0) mmol/L Calcium (8.4-10.2) mg/dL Total Bilirubin (0.2-1.3) mg/dL AST (14-36) U/L ALT (4-34) U/L Alkaline Phosphatase (38-126) U/L Total Protein (6.3-8.2) g/dL Albumin (3.5-5.0) g/dL Urine Color Yellow Urine Appearance Clear (Clear) Urine pH 6.5 (5.0-8.0) Ur Specific [place] 1.013 (1.001-1.035) Urine Protein Negative (Negative) Urine Glucose (UA) Negative (Negative) Urine Ketones Negative (Negative) Urine Blood Negative (Negative) Urine Nitrite Negative (Negative) Urine Bilirubin Negative (Negative) Urine Urobilinogen <2.0 (<2.0) mg/dL Ur Leukocyte Esterase Moderate H (Negative) Urine RBC 1 (0-5) /hpf Urine WBC 1 (0-5) /hpf Ur Squamous Epith Cells 6 H (0-4) /hpf Urine Bacteria Rare H (None) /hpf Urine Mucus Rare H (None) /hpf Urine HCG, Qual Not Detected (Not Detectd) 05/30/23 05/30/23 Range/Units 02:25 02:25 WBC (3.8-10.6) k/uL RBC (3.80-5.40) m/uL Hgb (11.4-16.0) gm/dL Hct (34.0-46.0) % MCV (80.0-100.0) fL MCH (25.0-35.0) pg MCHC (31.0-37.0) g/dL RDW (11.5-15.5) % Plt Count (150-450) k/uL MPV Neutrophils % % Lymphocytes % % Monocytes % % Eosinophils % % Basophils % % Neutrophils # (1.3-7.7) k/uL Lymphocytes # (1.0-4.8) k/uL Monocytes # (0-1.0) k/uL Eosinophils # (0-0.7) k/uL Basophils # (0-0.2) k/uL Sodium 136 L (137-145) mmol/L Potassium 4.0 (3.5-5.1) mmol/L Chloride 100 (98-107) mmol/L Carbon Dioxide 27 (22-30) mmol/L Anion Gap 9 mmol/L BUN 10 (7-17) mg/dL Creatinine 0.78 (0.52-1.04) mg/dL Est GFR (CKD-EPI)AfAm >90 (>60 ml/min/1.73 sqM) Est GFR (CKD-EPI)NonAf >90 (>60 ml/min/1.73 sqM) Glucose 96 (74-99) mg/dL Plasma Lactic Acid [place] 1.2 (0.7-2.0) mmol/L Calcium 9.2 (8.4-10.2) mg/dL Total Bilirubin 0.4 (0.2-1.3) mg/dL AST 20 (14-36) U/L ALT 20 (4-34) U/L Alkaline Phosphatase 72 (38-126) U/L Total Protein 7.6 (6.3-8.2) g/dL Albumin 4.0 (3.5-5.0) g/dL Urine Color Urine Appearance (Clear) Urine pH (5.0-8.0) Ur Specific [place] (1.001-1.035) Urine Protein (Negative) Urine Glucose (UA) (Negative) Urine Ketones (Negative) Urine Blood (Negative) Urine Nitrite (Negative) Urine Bilirubin (Negative) Urine Urobilinogen (<2.0) mg/dL Ur Leukocyte Esterase (Negative) Urine RBC (0-5) /hpf Urine WBC (0-5) /hpf Ur Squamous Epith Cells (0-4) /hpf Urine Bacteria (None) /hpf Urine Mucus (None) /hpf Urine HCG, Qual (Not Detectd) Disposition Clinical Impression: Rhinosinusitis, Fibroid Disposition: HOME SELF-CARE Condition: Good Instructions (If sedation given, give patient instructions): Rhinosinusitis (ED) Additional Instructions: Follow-up with PCP. Report back to ER with any new or worsening symptoms. Take medication as prescribed. Take Motrin and Tylenol as needed for pain control. Prescriptions: Fluticasone Nasal [place] [Flonase Nasal [place]] 2 spray EA NOSTRIL DAILY #16 gm Is patient prescribed a controlled substance at d/c from ED?: No Referrals: Poli Christy [Primary Care Provider] - 1-2 days Time of Disposition: 03:37
[2023-05-30 02:45] LABS: Basophils % (A) 0 %; Eosinophils # (A) 0.2 k/uL (0-0.7); Eosinophils % (A) 2 %; HCT 41.2 % (34.0-46.0); HGB 13.5 gm/dL (11.4-16.0); Lymphocytes # (A) 2.1 k/uL (1.0-4.8); Lymphocytes % (A) 26 %; MCHC 32.7 g/dL (31.0-37.0); MCV 91.7 fL (80.0-100.0); Mean Platelet Volume 6.6; Monocytes # (A) 0.3 k/uL (0-1.0); Monocytes % (A) 4 %; Neutrophils # (A) 5.3 k/uL (1.3-7.7); Neutrophils % (A) 66 %; Platelet Count 276 k/uL (150-450); RBC 4.49 m/uL (3.80-5.40); RDW 13.3 % (11.5-15.5)
[2023-05-30 02:50] LABS: Appearance,Urine Clear (Clear); Bacteria,Urine Rare /hpf; Bilirubin,Urine Negative (Negative); Blood,Urine Negative (Negative); Color,Urine Yellow; Glucose,Urine (UA) Negative (Negative); Ketones,Urine Negative (Negative); Leukocyte Esterase,Urine Moderate (Negative); Mucus,Urine Rare /hpf; Nitrite,Urine Negative (Negative); PH, Urine 6.5 (5.0-8.0); Protein,Urine Negative (Negative); RBC,Urine 1 /hpf (0-5); Specific Gravity,Urine 1.013 (1.001-1.035); Squamous Epithelial Cell,Urine 6 /hpf (0-4); Urobilinogen,Urine <2.0 mg/dL (<2.0); WBC,Urine 1 /hpf (0-5)
[2023-05-30 02:58] LABS: ALT 20 U/L (4-34); AST 20 U/L (14-36); African American GFR (CKD) >90 (>60 ml/min/1.73 sqM); Alkaline Phosphatase 72 U/L (38-126); Anion Gap 9 mmol/L; Blood Urea Nitrogen 10 mg/dL (7-17); Calcium 9.2 mg/dL (8.4-10.2); Carbon Dioxide 27 mmol/L (22-30); Chloride 100 mmol/L (98-107); Glucose 96 mg/dL (74-99); Non-African American GFR(CKD) >90 (>60 ml/min/1.73 sqM); Sodium 136 mmol/L (137-145); Total Bilirubin 0.4 mg/dL (0.2-1.3); Total Protein 7.6 g/dL (6.3-8.2)
--- NOTE | 2023-05-30 03:16 | CT ---
EXAMINATION TYPE: CT abdomen pelvis w con CT DLP: 1209.5 mGycm, Automated exposure control for dose reduction was used. DATE OF EXAM: 05/30/2023 3:06 AM COMPARISON: None. CLINICAL INDICATION:Female, 42 years old with history of LLQ abdominal pain; TECHNIQUE: Standard CT of the abdomen and pelvis following the administration of 100 cc of Isovue 3 00 IV contrast material. Coronal and sagittal reformats were performed. FINDINGS: LOWER CHEST: Unremarkable ABDOMEN LIVER: Unremarkable GALLBLADDER AND BILE DUCTS: Unremarkable. PANCREAS: Unremarkable. SPLEEN: Unremarkable. ADRENAL GLANDS: Unremarkable. KIDNEYS AND URETERS: No evidence of hydronephrosis or renal calculus. The kidneys enhance symmetrical ly. Contrast is demonstrated within both collecting systems on the delayed phase. PELVIS BLADDER: Unremarkable REPRODUCTIVE: Heterogenous and lobulated appearance with multiple fibroids identified. Right ovarian likely 3.4 cm follicular cyst. ABDOMEN & PELVIS STOMACH AND BOWEL: Stomach and duodenum are unremarkable . The appendix is within normal limits. No f ocal bowel wall thickening or surrounding inflammatory changes. No evidence of bowel obstruction. PERITONEUM: No evidence of pneumoperitoneum or free fluid. VASCULATURE: No evidence of aortic aneurysm. MUSCULOSKELETAL: No acute osseous abnormalities degenerative changes at L5-S1 with disc space narrowi ng, endplate sclerosis, vacuum disc disease, and anterior osteophytosis. LYMPH NODES: No gross evidence for lymphadenopathy. SOFT TISSUE/ABDOMINAL WALL: Postsurgical changes with multiple calcified granulomas within the glutea l soft tissues and bilateral high density material identified within the bilateral gluteal regions fr om cosmetic procedure. Tiny fat filled umbilical hernia. IMPRESSION: 1. No acute abdominal/pelvic process. 2. Fibroid changes of the uterus with likely right ovarian 3.4 similar follicular cyst. 3. Cosmetic changes of the bilateral gluteal regions.
[2023-05-30 03:34] VITALS: BP 136/99; PULSE 78
== END 2023-05-30 04:06 | disposition home or self-care (01) ==
LOC: EC 01:27
DX: J32.9 Chronic sinusitis, unspecified (principal); D25.9 Leiomyoma of uterus, unspecified; Z87.891 Personal history of nicotine dependence
CPT/HCPCS: 36415; 80053; 83605; 85025; 81001; 81025; 74177; 99284; 96374; 96375; 96361; J2405; J1885; Q9967

== ENCOUNTER 2023-05-31 14:04 | Emergency (ER) | payer OTHER ==
[2023-05-31 14:28] VITALS: TEMP 98.8
[2023-05-31 14:36] VITALS: BP 158/68; PULSE 68; RESP 16
--- NOTE | 2023-05-31 15:08 | ED ---
General Adult HPI - General Chief complaint: Eye Problems Stated complaint: Lt eye pain Time Seen by Provider: 05/31/23 14:35 Source: patient, RN notes reviewed, old records reviewed Mode of arrival: ambulatory - History of Present Illness Initial comments: This 42-year-old female who presents emergency Department complaining of having drainage out of the right eye once today and one chest. Patient does not complain of any itching patient states has not been read patient denies any fever chills. Patient denies any pain in the patient denies any visual disturbance. Patient also asked me to check her ears throat and nose testing K something else is going on. Patient denies any shortness of breath or difficulty - Related Data Home Medications Medication Instructions Recorded Confirmed Carboxymethylcell/Glycerin/Pf 1 drop BOTH EYES Q2H 03/18/23 03/18/23 [Refresh Relieva Pf 0.5-1% Drop] Previous Rx's Medication Instructions Recorded Ibuprofen 600 mg PO TID PRN 7 Days #21 tab 03/23/23 Melatonin 10 mg PO HS 30 Days #60 tab 03/23/23 OXcarbazepine [Trileptal] 300 mg PO BID 30 Days #60 tab 03/23/23 hydrOXYzine pamoate [Vistaril] 25 mg PO TID PRN 7 Days #21 capsule 03/23/23 Fluticasone Nasal [place] [Flonase 2 spray EA NOSTRIL DAILY #16 gm 05/30/23 Nasal [place]] Allergies Allergy/AdvReac Type Severity Reaction Status Date / Time No Known Allergies Allergy Verified 05/31/23 14:28 Review of Systems ROS Statement: Those systems with pertinent positive or pertinent negative responses have been documented in the HPI. ROS Other: All systems not noted in ROS Statement are negative. Past Medical History Past Medical History: No Reported History History of Any Multi-Drug Resistant Organisms: None Reported Additional Past Surgical History / Comment(s): Gluteal Implants 2018 Past Psychological History: No Psychological Hx Reported Smoking Status: Former smoker Past Alcohol Use History: Rare Past Drug Use History: None Reported General Exam - General Exam Comments Initial Comments: GENERAL: Patient is well-developed and well-nourished. Patient is nontoxic and well- hydrated and is in no acute distress. ENT: Neck is soft and supple. No significant lymphadenopathy is noted. Oropharynx is clear. Moist mucous membranes. Neck has full range of motion without eliciting any pain. Patient's turbinate was mildly swollen EYES: The sclera were anicteric and conjunctiva were pink and moist. Extraocular movements were intact and pupils were equal round and reactive to light. Eyelids were unremarkable.there was no signs of any drainage irritation and infection. SKIN: Skin is clear with no lesions or rashes and otherwise unremarkable. NEUROLOGIC: Patient is alert and oriented x3. Cranial nerves II through XII are grossly intact. Motor and sensory are also intact. Normal speech, volume and content. Symmetrical smile. MUSCULOSKELETAL: Normal extremities with adequate strength and full range of motion. LYMPHATICS: No significant lymphadenopathy is noted PSYCHIATRIC: Normal psychiatric evaluation. Patient is hyperverbal Course Vital Signs 05/31/23 05/31/23 14:24 14:36 Temperature 98.8 F Pulse Rate 108 H 68 Respiratory 18 16 Rate Blood Pressure 124/87 158/68 O2 Sat by Pulse 98 98 Oximetry Medical Decision Making - Medical Decision Making Was pt. sent in by a medical professional or institution (, PA, PRECIPITATOR OPERATOR, urgent care, hospital, or jail...) When possible be specific @ -No Did you speak to anyone other than the patient for history (EMS, parent, family, police, friend...)? What history was obtained from this source @ -No Did you review nursing and triage notes (agree or disagree)? Why? @ -I reviewed and agree with nursing and triage notes Were old charts reviewed (outside hosp., previous admission, EMS record, old EKG, old radiological studies, urgent care reports/EKG's, jail records)? Report findings @ -No old charts were reviewed Differential Diagnosis (chest pain, altered mental status, abdominal pain women, abdominal pain men, vaginal bleeding, weakness, fever, dyspnea, syncope, headache, dizziness, GI bleed, back pain, seizure, CVA, palpatations, mental health, musculoskeletal)? @ -Viral conjunctivitis, bacterial conjunctivitis, ALLERGIC conjunctivitis, periorbital cellulitis, lacrimal duct obstruction EKG interpreted by me (3pts min.). @ -As above X-rays interpreted by me (1pt min.). @ -None done CT interpreted by me (1pt min.). @ -None done U/S interpreted by me (1pt. min.). @ -None done What testing was considered but not performed or refused? (CT, X-rays, U/S, labs)? Why? @ -None What meds were considered but not given or refused? Why? @ -None Did you discuss the management of the patient with other professionals (professionals i.e. , PA, PRECIPITATOR OPERATOR, lab, RT, psych nurse, adoption social worker, front attendant, teacher, corporate banking officer, family independence case manager)? Give summary @ -No Was smoking cessation discussed for >3mins.? @ -No Was critical care preformed (if so, how long)? @ -No Were there social determinants of health that impacted care today? How? (Homelessness, low income, unemployed, alcoholism, drug addiction, transportation, low edu. Level, literacy, decrease access to med. care, residential, rehab)? @ -No Was there de-escalation of care discussed even if they declined (Discuss DNR or withdrawal of care, Hospice)? DNR status @ -No What co-morbidities impacted this encounter? (DM, HTN, Smoking, COPD, CAD, Cancer, CVA, ARF, Chemo, Hep., AIDS, mental health diagnosis, sleep apnea, morbid obesity)? @ -None Was patient admitted / discharged? Hospital course, mention meds given and route, prescriptions, significant lab abnormalities, going to OR and other pertinent info. @ -Patient wanted me to check all her ears nose mild and eyes out even though currently she is having no symptoms at all. Undiagnosed new problem with uncertain prognosis? @ -No] Drug Therapy requiring intensive monitoring for toxicity (Heparin, Nitro, Insulin, Cardizem)? @ -No Were any procedures done? @ -No Diagnosis/symptom? @ -eye drainage Acute, or Chronic, or Acute on Chronic? @ -Acute Uncomplicated (without systemic symptoms) or Complicated (systemic symptoms)? @ -Uncomplicated Side effects of treatment? @ -No Exacerbation, Progression, or Severe Exacerbation? @ -No Poses a threat to life or bodily function? How? (Chest pain, [place], [place], pneumonia, PE, COPD, DKA, ARF, appy, cholecystitis, CVA, Diverticulitis, Homicidal, S uicidal, threat to staff... and all critical care pts) @ -No Disposition Clinical Impression: Eye drainage Disposition: HOME SELF-CARE Is patient prescribed a controlled substance at d/c from ED?: No Referrals: Poli Christy [Primary Care Provider] - 1-2 days Time of Disposition: 15:07
== END 2023-05-31 15:23 | disposition home or self-care (01) ==
LOC: EC 14:04
DX: H57.89 Other specified disorders of eye and adnexa (principal); Z87.891 Personal history of nicotine dependence
CPT/HCPCS: 99283

== ENCOUNTER 2023-06-13 08:36 | Emergency (ER) | payer OTHER ==
[2023-06-13 08:43] VITALS: BP 148/78; PULSE 101; RESP 20; TEMP 98.2
--- NOTE | 2023-06-13 10:20 | ED ---
ENT HPI - General Chief complaint: ENT Stated complaint: Eye Pain, Female Time Seen by Provider: 06/13/23 10:13 Source: patient Mode of arrival: ambulatory Limitations: no limitations - History of Present Illness Initial comments: Patient is a 42-year-old -Sammar[place] female well known to the emergency department who presents to the emergency room today with multiple complaints including pain under her left eye, right ear pressure and perineal itching related to "jock itch." She reports being on multiple antibiotic regimens and multiple steroid recently with her most recent medication of Decadron being completed. She reports that when she is on Decadron she feels better but that her symptoms quickly return. She was also prescribed Flonase and stopped using that medication as well. She denies any chest pain, shortness of breath, abdominal pain, nausea, vomiting, fevers or chills. - Related Data Home Medications Medication Instructions Recorded Confirmed Carboxymethylcell/Glycerin/Pf 1 drop BOTH EYES Q2H 03/18/23 03/18/23 [Refresh Relieva Pf 0.5-1% Drop] Previous Rx's Medication Instructions Recorded Ibuprofen 600 mg PO TID PRN 7 Days #21 tab 03/23/23 Melatonin 10 mg PO HS 30 Days #60 tab 03/23/23 OXcarbazepine [Trileptal] 300 mg PO BID 30 Days #60 tab 03/23/23 hydrOXYzine pamoate [Vistaril] 25 mg PO TID PRN 7 Days #21 capsule 03/23/23 Fluticasone Nasal [place] [Flonase 2 spray EA NOSTRIL DAILY #16 gm 05/30/23 Nasal [place]] Fluticasone Nasal [place] [Flonase 2 spray EA NOSTRIL DAILY #16 gm 06/13/23 Nasal [place]] methylPREDNISolone Dose Pack 4 mg PO DIRECTED #21 tab 06/13/23 [Medrol Dose Pack] Allergies Allergy/AdvReac Type Severity Reaction Status Date / Time No Known Allergies Allergy Verified 06/13/23 08:43 Review of Systems ROS Statement: Those systems with pertinent positive or pertinent negative responses have been documented in the HPI. ROS Other: All systems not noted in ROS Statement are negative. Past Medical History Past Medical History: No Reported History History of Any Multi-Drug Resistant Organisms: None Reported Additional Past Surgical History / Comment(s): Gluteal Implants 2018 Past Psychological History: No Psychological Hx Reported Smoking Status: Former smoker Past Alcohol Use History: Rare Past Drug Use History: None Reported General Exam - General Exam Comments Initial Comments: GENERAL: No acute distress, well developed, well nourished. HEENT: Normocephalic, atraumatic. Pupils equal, round, reactive to light. Moist mucous membranes. TMs normal bilaterally. External ear unremarkable. No periorbital edema or tenderness. Bilateral turbinates with edema and erythema but patent and no exudate. LUNGS: No respiratory distress. Clear to auscultation, no adventitious sounds, no use of accessory muscles. HEART: Regular rate and rhythm without murmur, rub, or gallop. ABDOMEN: Normal bowel sounds. Soft, non-tender, non-distended. : Perineal exam deferred. BACK: Normal inspection. EXTREMITIES: No edema. No tenderness. Moves all extremities. NEUROLOGIC: Alert & oriented x 3. CN II-XII grossly intact. PSYCHIATRIC: Normal affect and behavior. DERMATOLOGIC: Visualized skin intact, without rashes or lesions noted. Limitations: no limitations Course Vital Signs 06/13/23 06/13/23 08:41 10:29 Temperature 98.2 F 98.2 F Pulse Rate 101 H 101 H Respiratory 20 20 Rate Blood Pressure 148/78 148/78 O2 Sat by Pulse 99 99 Oximetry Medical Decision Making - Medical Decision Making Was pt. sent in by a medical professional or institution (, PA, VICE PRESIDENT [employer], urgent ca re, hospital, or residential...) When possible be specific @ -No Did you speak to anyone other than the patient for history (EMS, parent, family, police, friend...)? What history was obtained from this source @ -No Did you review nursing and triage notes (agree or disagree)? Why? @ -I reviewed and agree with nursing and triage notes Were old charts reviewed (outside hosp., previous admission, EMS record, old EKG, old radiological studies, urgent care reports/EKG's, residential records)? Report findings @ -No old charts were reviewed Differential Diagnosis (chest pain, altered mental status, abdominal pain women, abdominal pain men, vaginal bleeding, weakness, fever, dyspnea, syncope, headache, dizziness, GI bleed, back pain, seizure, CVA, palpatations, mental health, musculoskeletal)? @ -Differential Upper respiratory symptoms: Pneumonia, viral URI, bronchitis, otitis, sinusitis, streptococcal pharyngitis, mononucleosis, peritonsillar Abscess, retropharyngeal Abscess, epiglottitis, this is not meant to be an all-inclusive list. EKG interpreted by me (3pts min.). @ -None done X-rays interpreted by me (1pt min.). @ -None done CT interpreted by me (1pt min.). @ -None done U/S interpreted by me (1pt. min.). @ -None done What testing was considered but not performed or refused? (CT, X-rays, U/S, labs)? Why? @ -None What meds were considered but not given or refused? Why? @ -None Did you discuss the management of the patient with other professionals (professionals i.e. , PA, VICE PRESIDENT [employer], lab, RT, psych nurse, social group worker, manager ecommerce, teacher, radiation officer, telephonic nurse case manager)? Give summary @ -No Was smoking cessation discussed for >3mins.? @ -No Was critical care preformed (if so, how long)? @ -No Were there social determinants of health that impacted care today? How? (Homelessness, low income, unemployed, alcoholism, drug addiction, transportation, low edu. Level, literacy, decrease access to med. care, halfway, rehab)? @ -No Was there de-escalation of care discussed even if they declined (Discuss DNR or withdrawal of care, Hospice)? DNR status @ -No What co-morbidities impacted this encounter? (DM, HTN, Smoking, COPD, CAD, Cancer, CVA, ARF, Chemo, Hep., AIDS, mental health diagnosis, sleep apnea, morbid obesity)? @ -None Was patient admitted / discharged? Hospital course, mention meds given and route, prescriptions, significant lab abnormalities, going to OR and other pertinent info. @ - 42-year-old -[place]ammar[place] female well known to the emergency department who presents to the emergency room today with multiple complaints including pain under her left eye, right ear pressure and perineal itching related to "jock itch." She reports being on multiple antibiotic regimens and multiple steroid recently with her most recent medication of Decadron being completed. No indication for any diagnostic imaging, laboratory studies were medication administration exam raise it feels bilateral turbinate erythremia and edema consistent with sinusitis. Advised the use of antihistamines and Flonase regularly. Given the amount of edema in the nasal turbinates will place on a Medrol Dosepak. Educated patient regarding follow-up with her primary care provider and avoidance of return to emergency room for continued sinusitis symptoms. Questions and concerns answered. Return parameters the emergency room discussed. We'll discharge home in stable condition on Flonase and Medrol dose pack to treat recurrent sinusitis advising follow-up with primary care provider.. Undiagnosed new problem with uncertain prognosis? @ -No Drug Therapy requiring intensive monitoring for toxicity (Heparin, Nitro, Insulin, Cardizem)? @ -No Were any procedures done? @ -No Diagnosis/symptom? @ -Recurrent sinusitis Acute, or Chronic, or Acute on Chronic? @ -Acute Uncomplicated (without systemic symptoms) or Complicated (systemic symptoms)? @ -Uncomplicated Side effects of treatment? @ -No Exacerbation, Progression, or Severe Exacerbation? @ -No Poses a threat to life or bodily function? How? (Chest pain, [place], [place], pneumonia, PE, COPD, DKA, ARF, appy, cholecystitis, CVA, Diverticulitis, Homicidal, Suicidal, threat to staff... and all critical care pts) @ -No Case discussed with Dr. Padilla. Disposition Clinical Impression: Recurrent sinusitis Disposition: HOME SELF-CARE Condition: Stable Instructions (If sedation given, give patient instructions): Sinusitis (ED) Additional Instructions: Please complete Medrol Dosepak as prescribed. Continue Flonase daily until seen by ear nose and throat doctor. Please follow-up with your primary care provider and an ear nose and throat provider. Avoid allergens when possible. Continue daily antihistamine. May use Anastasia pot use if desired. Please return to the Emergency Department if symptoms worsen or any other concerns. Prescriptions: Fluticasone Nasal [place] [Flonase Nasal [place]] 2 spray EA NOSTRIL DAILY #16 gm methylPREDNISolone Dose Pack [Medrol Dose Pack] 4 mg PO DIRECTED #21 tab Is patient prescribed a controlled substance at d/c from ED?: No Referrals: Poli Christy [Primary Care Provider] - 1-2 days Time of Disposition: 10:20
== END 2023-06-13 10:29 | disposition home or self-care (01) ==
LOC: EC 08:36
DX: J32.9 Chronic sinusitis, unspecified (principal); Z87.891 Personal history of nicotine dependence
CPT/HCPCS: 99282

== ENCOUNTER 2023-06-27 05:48 | Emergency (ER) | payer OTHER ==
[2023-06-27 06:04] VITALS: BP 120/82; PULSE 106; RESP 20; TEMP 98
--- NOTE | 2023-06-27 06:46 | ED ---
Female Urogenital HPI - General Chief complaint: Urogenital Stated complaint: abd pain vaginal itching Time Seen by Provider: 06/27/23 06:20 Source: patient, RN notes reviewed, old records reviewed Mode of arrival: ambulatory Limitations: no limitations - History of Present Illness Initial comments: 42-year-old female presents to the emergency room with complaints of "jock itch", "powdery" vaginal discharge and "smelly" bowel movements. States has been ongoing for a month was seen in the emergency room couple of weeks ago with the same complaint. States has not improved. She states that she is not sexually active and has not had intercourse in over 5 years. She is not concerned with sexually transmitted infection or . No dysuria. Denies any medical history. MD Complaint: vaginal discharge, other (perineal skin irritation) -: month(s) (1) Location: perineum Consistency: constant Worsens with: none Patient : No - Related Data Sexually active: No (no sexual activity in 5 years) Home Medications Medication Instructions Recorded Confirmed Carboxymethylcell/Glycerin/Pf 1 drop BOTH EYES Q2H 03/18/23 03/18/23 [Refresh Relieva Pf 0.5-1% Drop] Previous Rx's Medication Instructions Recorded Ibuprofen 600 mg PO TID PRN 7 Days #21 tab 03/23/23 Melatonin 10 mg PO HS 30 Days #60 tab 03/23/23 OXcarbazepine [Trileptal] 300 mg PO BID 30 Days #60 tab 03/23/23 hydrOXYzine pamoate [Vistaril] 25 mg PO TID PRN 7 Days #21 capsule 03/23/23 Fluticasone Nasal [place] [Flonase 2 spray EA NOSTRIL DAILY #16 gm 05/30/23 Nasal [place]] Fluticasone Nasal [place] [Flonase 2 spray EA NOSTRIL DAILY #16 gm 06/13/23 Nasal [place]] methylPREDNISolone Dose Pack 4 mg PO DIRECTED #21 tab 06/13/23 [Medrol Dose Pack] Allergies Allergy/AdvReac Type Severity Reaction Status Date / Time No Known Allergies Allergy Verified 06/27/23 06:03 Review of Systems ROS Statement: Those systems with pertinent positive or pertinent negative responses have been documented in the HPI. ROS Other: All systems not noted in ROS Statement are negative. Past Medical History Past Medical History: No Reported History History of Any Multi-Drug Resistant Organisms: None Reported Additional Past Surgical History / Comment(s): Gluteal Implants 2018 Past Psychological History: No Psychological Hx Reported Smoking Status: Former smoker Past Alcohol Use History: Rare Past Drug Use History: None Reported General Exam Limitations: no limitations General appearance: alert, in no apparent distress Head exam: Present: atraumatic, normocephalic Eye exam: Present: normal appearance. Absent: scleral icterus, conjunctival injection, periorbital swelling Neck exam: Present: full ROM. Absent: meningismus Respiratory exam: Absent: respiratory distress, accessory muscle use Cardiovascular Exam: Present: tachycardia GI/Abdominal exam: Present: soft. Absent: distended, rigid External exam: Absent: erythema, swelling, lesions, lacerations, ecchymosis Speculum exam: Present: cervical discharge, other (multiple lesions intravaginal, shallow ulceration at 2 o'clock, two dark lesions and 10 and 11 o'clock approx 2-3mm, no odor). Absent: erythema, vaginal bleeding, foreign body, laceration Extremities exam: Present: normal inspection, full ROM, normal capillary refill. Absent: tenderness, pedal edema Neurological exam: Present: alert, oriented X3 Psychiatric exam: Present: normal affect, normal mood Skin exam: Present: warm, dry, normal color. Absent: cyanosis, diaphoretic, petechiae, pallor Course Vital Signs 06/27/23 05:59 Temperature 98 F Pulse Rate 106 H Respiratory 20 Rate Blood Pressure 120/82 O2 Sat by Pulse 98 Oximetry Medical Decision Making - Medical Decision Making Was pt. sent in by a medical professional or institution (, PA, ST[employer] SANDBLASTER, urgent care, hospital, or long term...) When possible be specific @ -No Did you speak to anyone other than the patient for history (EMS, parent, family, police, friend...)? What history was obtained from this source @ -No Did you review nursing and triage notes (agree or disagree)? Why? @ -I reviewed and agree with nursing and triage notes Were old charts reviewed (outside hosp., previous admission, EMS record, old EKG, old radiological studies, urgent care reports/EKG's, long term records)? Report findings @ -Previous ER visit June 13 diagnosed with sinusitis and placed on antibiotics. Differential Diagnosis (chest pain, altered mental status, abdominal pain women, abdominal pain men, vaginal bleeding, weakness, fever, dyspnea, syncope, headache, dizziness, GI bleed, back pain, seizure, CVA, palpatations, mental health, musculoskeletal)? @ -6 transmitted infection, Danya infection, HPV, foreign body, this is not an all inclusive list EKG interpreted by me (3pts min.). @ -n/a X-rays interpreted by me (1pt min.). @ -None done CT interpreted by me (1pt min.). @ -None done U/S interpreted by me (1pt. min.). @ -None done What testing was considered but not performed or refused? (CT, X-rays, U/S, labs)? Why? @ -None What meds were considered but not given or refused? Why? @ -None Did you discuss the management of the patient with other professionals (professionals i.e. , PA, STONE SANDBLASTER, lab, RT, psych nurse, social worker masters, heat set operator, teacher, airfield engineer officer, showcase trimmer)? Give summary @ -No Was smoking cessation discussed for >3mins.? @ -No Was critical care preformed (if so, how long)? @ -No Were there social determinants of health that impacted care today? How? (Homelessness, low income, unemployed, alcoholism, drug addiction, transportation, low edu. Level, literacy, decrease access to med. care, [facility], rehab)? @ -No Was there de-escalation of care discussed even if they declined (Discuss DNR or withdrawal of care, Hospice)? DNR status @ -No What co-morbidities impacted this encounter? (DM, HTN, Smoking, COPD, CAD, Cancer, CVA, ARF, Chemo, Hep., AIDS, mental health diagnosis, sleep apnea, morbid obesity)? @ -None Was patient admitted / discharged? Hospital course, mention meds given and route, prescriptions, significant lab abnormalities, going to OR and other pertinent info. @ -Discharged 42-year-old female presents to the emergency room with complaints of "jock itch", "powdery" vaginal discharge and "smelly" bowel movements. States has been ongoing for a month was seen in the emergency room couple of weeks ago with the same complaint. States has not improved. She states that she is not sexually active and has not had intercourse in over 5 years. She is not concerned with sexually transmitted infection or . No dysuria. States has been on a lot of antibiotics recently. Denies any medical history. Vaginal exam was performed showing no external lesions. Danya infection noted. Vaginal exam revealed one shallow ulceration 2-3mm at 2 o'clock, 2 other dark lesions approximately 2-3 mm at 10 and 11 oclock. Painless with no bleeding. Vaginal culture and STD cultures were sent. UA shows trace leukocyte esterase was sent for culture. She was given a dose of Diflucan in the emergency room. Patient was directed to follow up with her [employer] Dr. Robledo for a Pap smear and vaginal exam, concerned for HPV. 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 She states understanding. Discharged home. Case discussed with Dr. Dallas. Undiagnosed new problem with uncertain prognosis? @ -No Drug Therapy requiring intensive monitoring for toxicity (Heparin, Nitro, In sulin, Cardizem)? @ -No Were any procedures done? @ -No Diagnosis/symptom? @ -Vaginal candidiasis, intravaginal lesions Acute, or Chronic, or Acute on Chronic? @ -acute Uncomplicated (without systemic symptoms) or Complicated (systemic symptoms)? @ -Uncomplicated Side effects of treatment? @ -No Exacerbation, Progression, or Severe Exacerbation? @ -No Poses a threat to life or bodily function? How? (Chest pain, [place], [place], pneumonia, PE, COPD, DKA, ARF, appy, cholecystitis, CVA, Diverticulitis, Homicidal, Suicidal, threat to staff... and all critical care pts) @ -No - Lab Data Lab Results 06/27/23 Range/Units 07:15 Urine Color Light Yellow Urine Appearance Clear (Clear) Urine pH 6.0 (5.0-8.0) Ur Specific [place] 1.020 (1.001-1.035) Urine Protein Negative (Negative) Urine Glucose (UA) Negative (Negative) Urine Ketones Negative (Negative) Urine Blood Trace H (Negative) Urine Nitrite Negative (Negative) Urine Bilirubin Negative (Negative) Urine Urobilinogen <2.0 (<2.0) mg/dL Ur Leukocyte Esterase Trace H (Negative) Urine RBC <1 (0-5) /hpf Urine WBC <1 (0-5) /hpf Ur Squamous Epith Cells 2 (0-4) /hpf Hyaline Casts 1 (0-2) /lpf Urine Mucus Rare H (None) /hpf Disposition Clinical Impression: Vaginal yeast infection, Vaginal lesion Disposition: HOME SELF-CARE Condition: Good Instructions (If sedation given, give patient instructions): Yeast Infection (ED) Additional Instructions: It is important that you follow-up with your [employer] Dr Robledo for followup on vaginal lesions, including testing for HPV. You need to have this exam to evaluate for cancer. Is patient prescribed a controlled substance at d/c from ED?: No Referrals: None,Stated [REFERRING] - 1-2 days Time of Disposition: 07:20
[2023-06-27] MEDS ORDERED: FLUCONAZOLE 150 MG TAB PO STA (07:13)
[2023-06-27 07:38] LABS: Appearance,Urine Clear (Clear); Bilirubin,Urine Negative (Negative); Blood,Urine Trace (Negative); Color,Urine Light Yellow; Glucose,Urine (UA) Negative (Negative); Hyaline Casts,Urine 1 /lpf (0-2); Ketones,Urine Negative (Negative); Leukocyte Esterase,Urine Trace (Negative); Mucus,Urine Rare /hpf; Nitrite,Urine Negative (Negative); Protein,Urine Negative (Negative); RBC,Urine <1 /hpf (0-5); Squamous Epithelial Cell,Urine 2 /hpf (0-4); Urobilinogen,Urine <2.0 mg/dL (<2.0); WBC,Urine <1 /hpf (0-5)
== END 2023-06-27 08:00 | disposition home or self-care (01) ==
LOC: EC 05:48
DX: B37.31 Acute candidiasis of vulva and vagina (principal); N89.8 Other specified noninflammatory disorders of vagina; R00.0 Tachycardia, unspecified; Z87.891 Personal history of nicotine dependence
CPT/HCPCS: 81001; 87070; 87086; 87205; 87491; 87591; 99284

== ENCOUNTER 2023-06-29 04:55 | Emergency (ER) | payer OTHER ==
[2023-06-29 05:14] VITALS: BP 146/101; PULSE 90; RESP 18; TEMP 98.5
--- NOTE | 2023-06-29 05:42 | ED ---
General Adult HPI - General Chief complaint: Recheck/Abnormal Lab/Rx Stated complaint: Vaginal burning, earache Time Seen by Provider: 06/29/23 05:12 Source: patient Mode of arrival: ambulatory Limitations: no limitations - History of Present Illness Initial comments: This is a 42-year-old female who presents emergency department for continued vaginal itching. The patient was seen in the emergency department yesterday for vaginal candidiasis and was given Diflucan. The patient is a poor story and and was odd and explaining her symptoms. The patient stated that she had an earache as well as continued vaginal itching. The patient stated that after the medication she did have improvement with the "burning" but then stated that she has been "wet down there" and stated that she has been "padding herself but still wet." The patient stated that she did have irritation to the outside of the vaginal wall but did not have any new drainage. The patient stated she came to the emergency Department because "I need to see what might lab work is today and the portal isn't working but I was going to my doctor's office but then I decided to come in to get looked at and get my labs." The patient is otherwise resting in bed comfortably. - Related Data Home Medications Medication Instructions Recorded Confirmed Carboxymethylcell/Glycerin/Pf 1 drop BOTH EYES Q2H 03/18/23 03/18/23 [Refresh Relieva Pf 0.5-1% Drop] Previous Rx's Medication Instructions Recorded Ibuprofen 600 mg PO TID PRN 7 Days #21 tab 03/23/23 Melatonin 10 mg PO HS 30 Days #60 tab 03/23/23 OXcarbazepine [Trileptal] 300 mg PO BID 30 Days #60 tab 03/23/23 hydrOXYzine pamoate [Vistaril] 25 mg PO TID PRN 7 Days #21 capsule 03/23/23 Fluticasone Nasal Avant [Flonase 2 spray EA NOSTRIL DAILY #16 gm 05/30/23 Nasal Avant] Fluticasone Nasal Avant [Flonase 2 spray EA NOSTRIL DAILY #16 gm 06/13/23 Nasal Avant] methylPREDNISolone Dose Pack 4 mg PO DIRECTED #21 tab 06/13/23 [Medrol Dose Pack] Hydrocortisone Oint 1 applic TOPICAL BID #28 gm 06/29/23 [Hydrocortisone 1% Oint] Allergies Allergy/AdvReac Type Severity Reaction Status Date / Time No Known Allergies Allergy Verified 06/29/23 05:11 Review of Systems ROS Statement: Those systems with pertinent positive or pertinent negative responses have been documented in the HPI. ROS Other: All systems not noted in ROS Statement are negative. Past Medical History Past Medical History: No Reported History History of Any Multi-Drug Resistant Organisms: None Reported Additional Past Surgical History / Comment(s): Gluteal Implants 2018 Past Psychological History: No Psychological Hx Reported Smoking Status: Former smoker Past Alcohol Use History: Rare Past Drug Use History: None Reported General Exam Limitations: no limitations General appearance: alert, in no apparent distress Head exam: Present: atraumatic, normocephalic, normal inspection Eye exam: Present: normal appearance, PERRL Pupils: Present: normal accommodation ENT exam: Present: normal exam, normal oropharynx, mucous membranes moist Neck exam: Present: normal inspection, full ROM Respiratory exam: Present: normal lung sounds bilaterally Cardiovascular Exam: Present: regular rate, normal rhythm, normal heart sounds GI/Abdominal exam: Present: soft, normal bowel sounds External exam: Present: other (deferred) Extremities exam: Present: normal inspection, full ROM Back exam: Present: normal inspection, full ROM Neurological exam: Present: alert, oriented X3, CN II-XII intact Psychiatric exam: Present: normal affect, normal mood Skin exam: Present: warm, dry Course Vital Signs 06/29/23 05:09 Temperature 98.5 F Pulse Rate 90 Respiratory 18 Rate Blood Pressure 146/101 O2 Sat by Pulse 98 Oximetry Medical Decision Making - Medical Decision Making Was pt. sent in by a medical professional or institution (, PA, SHIP PURSER, urgent care, hospital, or longterm...) When possible be specific @ -No Did you speak to anyone other than the patient for history (EMS, parent, family, police, friend...)? What history was obtained from this source @ -No Did you review nursing and triage notes (agree or disagree)? Why? @ -I reviewed and agree with nursing and triage notes Were old charts reviewed (outside hosp., previous admission, EMS record, old EKG, old radiological studies, urgent care reports/EKG's, longterm records)? Report findings @ -Yes, The patient's previous ER visit was reviewed Differential Diagnosis (chest pain, altered mental status, abdominal pain women, abdominal pain men, vaginal bleeding, weakness, fever, dyspnea, syncope, headache, dizziness, GI bleed, back pain, seizure, CVA, palpatations, mental health)? @ -Vaginal candidiasis, skin irritation, abrasion EKG interpreted by me (3pts min.). @ -None X-rays interpreted by me (1pt min.). @ -None done CT interpreted by me (1pt min.). @ -None done U/S interpreted by me (1pt. min.). @ -None done What testing was considered but not performed or refused? (CT, X-rays, U/S, labs)? Why? @ -None What meds were considered but not given or refused? Why? @ -None Did you discuss the management of the patient with other professionals (professionals i.e. , PA, SHIP PURSER, lab, RT, psych nurse, social science research assistant, paste mixing supervisor, teacher, naval gunfire liaison officer, keycase assembler)? Give summary @ -No Was smoking cessation discussed for >3mins.? @ -No Was critical care preformed (if so, how long)? @ -No Were there social determinants of health that impacted care today? How? (Homelessness, low income, unemployed, alcoholism, drug addiction, transportation, low edu. Level, literacy, decrease access to med. care, intermediate, rehab)? @ -No Was there de-escalation of care discussed even if they declined (Discuss DNR or withdrawal of care, Hospice)? DNR status @ -No What co-morbidities impacted this encounter? (DM, HTN, Smoking, COPD, CAD, Cancer, CVA, ARF, Chemo, Hep., AIDS, mental health diagnosis, sleep apnea, morbid obesity)? @ -None Was patient admitted / discharged? Hospital course, mention meds given and route, prescriptions, significant lab abnormalities, going to OR and other pertinent info. @ -The patient was seen and evaluated emergency department. Physical exam, the patient was sitting in bed comfortably without any acute distress. Vital signs admission were stable. After extensive conversation with the patient, it was determined that the patient came to the emergency department for suggestions about irritation around her vaginal wall. The patient did state that her symptoms of vaginal itching improved after the Diflucan. The patient did not require a repeat pelvic exam as she stated that nothing changed and did not want a repeat pelvic as she just had one yesterday. The patient was advised to continue to clean the area and to practice good hygiene. The patient was given a prescription for hydrocortisone cream to place on the irritated skin and was advised extensively not to place the cream directly on her genital area. The patient was ultimately agreeable to this. The patient was advised to follow-up with her primary care physician for further workup and evaluations report back to the emergency department if her pain or symptoms became acutely worse. The patient was agreeable to this and was discharged home in stable condition. Undiagnosed new problem with uncertain prognosis? @ -No Drug Therapy requiring intensive monitoring for toxicity (Heparin, Nitro, Insulin, Cardizem)? @ -No Were any procedures done? @ -No Diagnosis/symptom? @ -Skin irritation, poor medical literacy Acute, or Chronic, or Acute on Chronic? @ -Acute on chronic Uncomplicated (without systemic symptoms) or Complicated (systemic symptoms)? @ -Uncomplicated Side effects of treatment? @ -No Exacerbation, Progression, or Severe Exacerbation? @ -No Poses a threat to life or bodily function? How? (Chest pain, [place], [place], pneumonia, PE, COPD, DKA, ARF, appy, cholecystitis, CVA, Diverticulitis, Homicidal, Suicidal, threat to staff... and all critical care pts) @ -No Disposition Clinical Impression: Vaginal irritation Disposition: HOME SELF-CARE Condition: Stable Instructions (If sedation given, give patient instructions): Yeast Infection (ED) Prescriptions: Hydrocortisone Oint [Hydrocortisone 1% Oint] 1 applic TOPICAL BID #28 gm Is patient prescribed a controlled substance at d/c from ED?: No Referrals: Theresa Segovia FNPBC [Primary Care Provider] - 1-2 days Time of Disposition: 05:30
== END 2023-06-29 06:14 | disposition home or self-care (01) ==
LOC: SUPCPDRO 04:55 → EC 04:55
DX: N89.8 Other specified noninflammatory disorders of vagina (principal); Z87.891 Personal history of nicotine dependence
CPT/HCPCS: 99283

== ENCOUNTER 2024-05-14 16:19 | Inpatient (IN) | payer OTHER ==
--- NOTE | 2024-05-14 17:33 | ED ---
General Adult HPI - General Chief complaint: Arrhythmia/Palpitations Stated complaint: vomiting,increase in saliva Time Seen by Provider: 05/14/24 17:01 Source: patient, RN notes reviewed Mode of arrival: ambulatory Limitations: no limitations - History of Present Illness Initial comments: Patient is a 43-year-old female present to the emergency department with concerns with nausea and vomiting. Patient has had decreased appetite over the past week. Vomiting the past couple of days. No solid food intake in close to a week. Patient has had extremely limited fluid intake the last few days. No abdominal pain. Patient denies palpitations. Patient states there may be some mild dyspnea. - Related Data Home Medications Medication Instructions Recorded Confirmed No Known Home Medications 05/14/24 05/14/24 Allergies Allergy/AdvReac Type Severity Reaction Status Date / Time No Known Allergies Allergy Verified 05/14/24 19:31 Review of Systems ROS Statement: Those systems with pertinent positive or pertinent negative responses have been documented in the HPI. ROS Other: All systems not noted in ROS Statement are negative. Constitutional: Denies: fever Eyes: Denies: eye pain ENT: Denies: ear pain Respiratory: Reports: as per HPI Cardiovascular: Denies: chest pain, palpitations Endocrine: Reports: fatigue Gastrointestinal: Reports: nausea, vomiting. Denies: abdominal pain Past Medical History Past Medical History: No Reported History History of Any Multi-Drug Resistant Organisms: None Reported Additional Past Surgical History / Comment(s): Gluteal Implants 2018 Past Psychological History: No Psychological Hx Reported Smoking Status: Former smoker Past Alcohol Use History: Rare Past Drug Use History: None Reported General Exam Limitations: no limitations General appearance: alert, in no apparent distress Head exam: Present: normocephalic Eye exam: Present: normal appearance ENT exam: Present: normal oropharynx Neck exam: Present: normal inspection Cardiovascular Exam: Present: tachycardia, normal heart sounds Expanded Peripheral pulses: 2+: Radial (R), Radial (L) GI/Abdominal exam: Present: soft. Absent: tenderness Extremities exam: Present: normal inspection. Absent: pedal edema, calf tenderness Neurological exam: Present: alert Psychiatric exam: Present: normal affect, normal mood Skin exam: Present: normal color Course Vital Signs 05/14/24 05/14/24 05/14/24 16:55 18:01 18:39 Temperature 97.7 F Pulse Rate 164 H 141 H 121 H Respiratory 18 20 18 Rate Blood Pressure 150/86 147/91 145/87 O2 Sat by Pulse 98 96 96 Oximetry EKG Findings - EKG Results: EKG: interpreted by ERMD (Specific ST-T), sinus rhythm, normal axis, normal QRS EKG shows: tachycardia Medical Decision Making - Medical Decision Making EKG #2 interpreted by myself shows sinus tach 144, cannot rule out underlying atrial flutter. [place] 139. QRS 78. QT 252. QTc 335. Normal axis. Normal QRS. Nonspecific T waves. MDM back was pt. sent in by a medical professional or institution (, PA, OVERHEAD LINE WORKER, urgent care, hospital, or skilled nursing...) When possible be specific @ -No Did you speak to anyone other than the patient for history (EMS, parent, family, police, friend...)? What history was obtained from this source @ -No Did you review nursing and triage notes (agree or disagree)? Why? @ -I reviewed and agree with nursing and triage notes Were old charts reviewed (outside hosp., previous admission, EMS record, old EKG, old radiological studies, urgent care reports/EKG's, skilled nursing records)? Report findings @ -No old charts were reviewed Differential Diagnosis (chest pain, altered mental status, abdominal pain women, abdominal pain men, vaginal bleeding, weakness, fever, dyspnea, syncope, headache, dizziness, GI bleed, back pain, seizure, CVA, palpatations, mental health, musculoskeletal)? @ -Differential Weakness: Hypoglycemia, shock, sepsis, hyponatremia, anemia, infection, [place], ETOH, adverse medicine reaction, overdose, stroke, this is not meant to be an all-inclusive list. EKG interpreted by me (3pts min.). @ -As above X-rays interpreted by me (1pt min.). @ -1 view chest x-ray reveals no acute abnormality CT interpreted by me (1pt min.). @ -None done U/S interpreted by me (1pt. min.). @ -None done What testing was considered but not performed or refused? (CT, X-rays, U/S, labs)? Why? @ -None What meds were considered but not given or refused? Why? @ -None Did you discuss the management of the patient with other professionals (prof essionals i.e. Dr., PA, OVERHEAD LINE WORKER, lab, RT, psych nurse, licensed master social worker, inspector of weights and measures, teacher, radio electronics officer, corrections caseworker)? Give summary @ -Case discussed with Dr. Lozada who will admit covering for Dr. Chambers. Was smoking cessation discussed for >3mins.? @ -No Was critical care preformed (if so, how long)? @ -32 minutes critical care Were there social determinants of health that impacted care today? How? (Nathan elessness, low income, unemployed, alcoholism, drug addiction, transportation, low edu. Level, literacy, decrease access to med. care, [facility], rehab)? @ -No Was there de-escalation of care discussed even if they declined (Discuss DNR or withdrawal of care, Hospice)? DNR status @ -No What co-morbidities impacted this encounter? (DM, HTN, Smoking, COPD, CAD, Cancer, CVA, ARF, Chemo, Hep., AIDS, mental health diagnosis, sleep apnea, morbid obesity)? @ -History of reported hypothyroidism Was patient admitted / discharged? Hospital course, mention meds given and route, prescriptions, significant lab abnormalities, going to OR and other pertinent info. @ -Patient presents with nausea vomiting. Patient does have some dehydration. Patient has hypothyroidism. Medications provided. Patient reevaluated and improved. Heart rate 115 on the monitor. Patient will be admitted. Admission orders written. Undiagnosed new problem with uncertain prognosis? @ -No Drug Therapy requiring intensive monitoring for toxicity (Heparin, Nitro, Insulin, Cardizem)? @ -No Were any procedures done? @ -No Diagnosis/symptom? @ -Vomiting, hyperthyroidism, dehydration Acute, or Chronic, or Acute on Chronic? @ -Acute, acute, acute Uncomplicated (without systemic symptoms) or Complicated (systemic symptoms)? @ -Complicated with mild elevation of liver test, this will need to be reevaluated Side effects of treatment? @ -No Exacerbation, Progression, or Severe Exacerbation? @ -No Poses a threat to life or bodily function? How? (Chest pain, [place], [place], pneumonia, PE, COPD, DKA, ARF, appy, cholecystitis, CVA, Diverticulitis, Homicidal, Suicidal, threat to staff... and all critical care pts) @ -Threat to metabolic function - Lab Data Result diagrams: 05/14/24 17:36 05/14/24 17:36 Lab Results 05/14/24 05/14/24 05/14/24 Range/Units 17:36 17:36 17:36 WBC 8.2 (3.8-10.6) k/uL RBC 4.61 (3.80-5.40) m/uL Hgb 11.8 (11.4-16.0) gm/dL Hct 37.1 (34.0-46.0) % MCV 80.4 (80.0-100.0) fL MCH 25.6 (25.0-35.0) pg MCHC 31.8 (31.0-37.0) g/dL RDW 13.9 (11.5-15.5) % Plt Count 309 (150-450) k/uL MPV 7.3 Neutrophils % 77 % Lymphocytes % 14 % Monocytes % 7 % Eosinophils % 1 % Basophils % 0 % Neutrophils # 6.3 (1.3-7.7) k/uL Lymphocytes # 1.1 (1.0-4.8) k/uL Monocytes # 0.5 (0-1.0) k/uL Eosinophils # 0.0 (0-0.7) k/uL Basophils # 0.0 (0-0.2) k/uL Hypochromasia Moderate PT 12.0 (10.0-12.5) sec INR 1.1 (<1.2) APTT 24.4 (22.0-30.0) sec Sodium (137-145) mmol/L Potassium (3.5-5.1) mmol/L Chloride (98-107) mmol/L Carbon Dioxide (22-30) mmol/L Anion Gap mmol/L BUN (7-17) mg/dL Creatinine (0.52-1.04) mg/dL Est GFR (CKD-EPI)AfAm (>60 ml/min/1.73 sqM) Est GFR (CKD-EPI)NonAf (>60 ml/min/1.73 sqM) Glucose (74-99) mg/dL Calcium (8.4-10.2) mg/dL Total Bilirubin (0.2-1.3) mg/dL AST (14-36) U/L ALT (4-34) U/L Alkaline Phosphatase (38-126) U/L Troponin I (0.000-0.034) ng/mL Total Protein (6.3-8.2) g/dL Albumin (3.5-5.0) g/dL Amylase (30-110) U/L Lipase (23-300) U/L TSH (0.465-4.680) mIU/L Free T4 (0.78-2.19) ng/dL Urine Color Yellow Urine Appearance Cloudy H (Clear) Urine pH 6.0 (5.0-8.0) Ur Specific [place] 1.025 (1.001-1.035) Urine Protein 3+ H (Negative) Urine Glucose (UA) Negative (Negative) Urine Ketones 3+ H (Negative) Urine Blood Small H (Negative) Urine Nitrite Negative (Negative) Urine Bilirubin 1+ H (Negative) Urine Urobilinogen 3.0 (<2.0) mg/dL Ur Leukocyte Esterase Negative (Negative) Urine RBC 1 (0-5) /hpf Urine WBC 2 (0-5) /hpf Ur Squamous Epith Cells 3 (0-4) /hpf Hyaline Casts 11 H (0-2) /lpf Granular Casts 1 (0) /lpf Urine Mucus Occasional H (None) /hpf Urine Opiates Screen (NotDetected) Ur Oxycodone Screen (NotDetected) Urine Methadone Screen (NotDetected) Ur Barbiturates Screen (NotDetected) U Tricyclic Antidepress (NotDetected) Ur Phencyclidine Scrn (NotDetected) Ur Amphetamines Screen (NotDetected) U Methamphetamines Scrn (NotDetected) U Benzodiazepines Scrn (NotDetected) Urine Cocaine Screen (NotDetected) U Marijuana (THC) Screen (NotDetected) Influenza Type A (PCR) (Not Detectd) Influenza Type B (PCR) (Not Detectd) RSV (PCR) (Not Detectd) SARS-CoV-2 (PCR) (Not Detectd) 05/14/24 05/14/24 05/14/24 Range/Units 17:36 17:36 17:36 WBC (3.8-10.6) k/uL RBC (3.80-5.40) m/uL Hgb (11.4-16.0) gm/dL Hct (34.0-46.0) % MCV (80.0-100.0) fL MCH (25.0-35.0) pg MCHC (31.0-37.0) g/dL RDW (11.5-15.5) % Plt Count (150-450) k/uL MPV Neutrophils % % Lymphocytes % % Monocytes % % Eosinophils % % Basophils % % Neutrophils # (1.3-7.7) k/uL Lymphocytes # (1.0-4.8) k/uL Monocytes # (0-1.0) k/uL Eosinophils # (0-0.7) k/uL Basophils # (0-0.2) k/uL Hypochromasia PT (10.0-12.5) sec INR (<1.2) APTT (22.0-30.0) sec Sodium 143 (137-145) mmol/L Potassium 4.5 (3.5-5.1) mmol/L Chloride 109 H (98-107) mmol/L Carbon Dioxide 15 L (22-30) mmol/L Anion Gap 19 mmol/L BUN 37 H (7-17) mg/dL Creatinine 0.80 (0.52-1.04) mg/dL Est GFR (CKD-EPI)AfAm >90 (>60 ml/min/1.73 sqM) Est GFR (CKD-EPI)NonAf >90 (>60 ml/min/1.73 sqM) Glucose 66 L (74-99) mg/dL Calcium 12.3 H (8.4-10.2) mg/dL Total Bilirubin 1.8 H (0.2-1.3) mg/dL AST 92 H (14-36) U/L ALT 76 H (4-34) U/L Alkaline Phosphatase 151 H (38-126) U/L Troponin I <0.012 (0.000-0.034) ng/mL Total Protein 8.2 (6.3-8.2) g/dL Albumin 4.7 (3.5-5.0) g/dL Amylase 61 (30-110) U/L Lipase 99 (23-300) U/L TSH <0.015 L (0.465-4.680) mIU/L Free T4 >6.99 H (0.78-2.19) ng/dL Urine Color Urine Appearance (Clear) Urine pH (5.0-8.0) Ur Specific [place] (1.001-1.035) Urine Protein (Negative) Urine Glucose (UA) (Negative) Urine Ketones (Negative) Urine Blood (Negative) Urine Nitrite (Negative) Urine Bilirubin (Negative) Urine Urobilinogen (<2.0) mg/dL Ur Leukocyte Esterase (Negative) Urine RBC (0-5) /hpf Urine WBC (0-5) /hpf Ur Squamous Epith Cells (0-4) /hpf Hyaline Casts (0-2) /lpf Granular Casts (0) /lpf Urine Mucus (None) /hpf Urine Opiates Screen (NotDetected) Ur Oxycodone Screen (NotDetected) Urine Methadone Screen (NotDetected) Ur Barbiturates Screen (NotDetected) U Tricyclic Antidepress (NotDetected) Ur Phencyclidine Scrn (NotDetected) Ur Amphetamines Screen (NotDetected) U Methamphetamines Scrn (NotDetected) U Benzodiazepines Scrn (NotDetected) Urine Cocaine Screen (NotDetected) U Marijuana (THC) Screen (NotDetected) Influenza Type A (PCR) (Not Detectd) Influenza Type B (PCR) (Not Detectd) RSV (PCR) (Not Detectd) SARS-CoV-2 (PCR) (Not Detectd) 05/14/24 05/14/24 Range/Units 17:36 19:10 WBC (3.8-10.6) k/uL RBC (3.80-5.40) m/uL Hgb (11.4-16.0) gm/dL Hct (34.0-46.0) % MCV (80.0-100.0) fL MCH (25.0-35.0) pg MCHC (31.0-37.0) g/dL RDW (11.5-15.5) % Plt Count (150-450) k/uL MPV Neutrophils % % Lymphocytes % % Monocytes % % Eosinophils % % Basophils % % Neutrophils # (1.3-7.7) k/uL Lymphocytes # (1.0-4.8) k/uL Monocytes # (0-1.0) k/uL Eosinophils # (0-0.7) k/uL Basophils # (0-0.2) k/uL Hypochromasia PT (10.0-12.5) sec INR (<1.2) APTT (22.0-30.0) sec Sodium (137-145) mmol/L Potassium (3.5-5.1) mmol/L Chloride (98-107) mmol/L Carbon Dioxide (22-30) mmol/L Anion Gap mmol/L BUN (7-17) mg/dL Creatinine (0.52-1.04) mg/dL Est GFR (CKD-EPI)AfAm (>60 ml/min/1.73 sqM) Est GFR (CKD-EPI)NonAf (>60 ml/min/1.73 sqM) Glucose (74-99) mg/dL Calcium (8.4-10.2) mg/dL Total Bilirubin (0.2-1.3) mg/dL AST (14-36) U/L ALT (4-34) U/L Alkaline Phosphatase (38-126) U/L Troponin I (0.000-0.034) ng/mL Total Protein (6.3-8.2) g/dL Albumin (3.5-5.0) g/dL Amylase (30-110) U/L Lipase (23-300) U/L TSH (0.465-4.680) mIU/L Free T4 (0.78-2.19) ng/dL Urine Color Urine Appearance (Clear) Urine pH (5.0-8.0) Ur Specific [place] (1.001-1.035) Urine Protein (Negative) Urine Glucose (UA) (Negative) Urine Ketones (Negative) Urine Blood (Negative) Urine Nitrite (Negative) Urine Bilirubin (Negative) Urine Urobilinogen (<2.0) mg/dL Ur Leukocyte Esterase (Negative) Urine RBC (0-5) /hpf Urine WBC (0-5) /hpf Ur Squamous Epith Cells (0-4) /hpf Hyaline Casts (0-2) /lpf Granular Casts (0) /lpf Urine Mucus (None) /hpf Urine Opiates Screen Not Detected (NotDetected) Ur Oxycodone Screen Not Detected (NotDetected) Urine Methadone Screen Not Detected (NotDetected) Ur Barbiturates Screen Not Detected (NotDetected) U Tricyclic Antidepress Not Detected (NotDetected) Ur Phencyclidine Scrn Not Detected (NotDetected) Ur Amphetamines Screen Not Detected (NotDetected) U Methamphetamines Scrn Not Detected (NotDetected) U Benzodiazepines Scrn Not Detected (NotDetected) Urine Cocaine Screen Not Detected (NotDetected) U Marijuana (THC) Screen Not Detected (NotDetected) Influenza Type A (PCR) Not Detected (Not Detectd) Influenza Type B (PCR) Not Detected (Not Detectd) RSV (PCR) Not Detected (Not Detectd) SARS-CoV-2 (PCR) Not Detected (Not Detectd) Critical Care Time Critical Care Time: Yes Disposition Clinical Impression: Hyperthyroidism Disposition: ADMITTED IP TO THIS [facility] Condition: Serious Is patient prescribed a controlled substance at d/c from ED?: No Referrals: Poli Christy [Primary Care Provider] - 1-2 days Time of Disposition: 20:03
[2024-05-14 17:59] LABS: Appearance,Urine Cloudy (Clear); Bilirubin,Urine 1+ (Negative); Blood,Urine Small (Negative); Color,Urine Yellow; Glucose,Urine (UA) Negative (Negative); Granular Casts,Urine 1 /lpf (0); Hyaline Casts,Urine 11 /lpf (0-2); Ketones,Urine 3+ (Negative); Leukocyte Esterase,Urine Negative (Negative); Mucus,Urine Occasional /hpf; Nitrite,Urine Negative (Negative); Protein,Urine 3+ (Negative); RBC,Urine 1 /hpf (0-5); Specific Gravity,Urine 1.025 (1.001-1.035); Squamous Epithelial Cell,Urine 3 /hpf (0-4); WBC,Urine 2 /hpf (0-5)
[2024-05-14] MEDS: FAMOTIDINE 20 MG/2 ML VIAL IV STA (18:00)
[2024-05-14] MEDS: SODIUM CHLORIDE 0.9% 1,000 ML IV STA (18:00)
[2024-05-14] MEDS: SODIUM CHLORIDE 0.9% 500 ML 500 ML IV STA (18:00)
[2024-05-14 18:02] LABS: INR 1.1 (<1.2); Partial Thromboplastin Time 24.4 sec (22.0-30.0)
[2024-05-14] MEDS: ONDANSETRON 4 MG/2 ML VIAL IVP STA (18:04)
[2024-05-14 18:05] LABS: Basophils % (A) 0 %; Eosinophils % (A) 1 %; HCT 37.1 % (34.0-46.0); HGB 11.8 gm/dL (11.4-16.0); Hypochromasia Moderate; Lymphocytes # (A) 1.1 k/uL (1.0-4.8); Lymphocytes % (A) 14 %; MCH 25.6 pg (25.0-35.0); MCHC 31.8 g/dL (31.0-37.0); MCV 80.4 fL (80.0-100.0); Mean Platelet Volume 7.3; Monocytes # (A) 0.5 k/uL (0-1.0); Monocytes % (A) 7 %; Neutrophils # (A) 6.3 k/uL (1.3-7.7); Neutrophils % (A) 77 %; Platelet Count 309 k/uL (150-450); RBC 4.61 m/uL (3.80-5.40); RDW 13.9 % (11.5-15.5); WBC 8.2 k/uL (3.8-10.6)
[2024-05-14 18:19] LABS: ALT 76 U/L (4-34); AST 92 U/L (14-36); African American GFR (CKD) >90 (>60 ml/min/1.73 sqM); Albumin 4.7 g/dL (3.5-5.0); Alkaline Phosphatase 151 U/L (38-126); Amylase 61 U/L (30-110); Anion Gap 19 mmol/L; Blood Urea Nitrogen 37 mg/dL (7-17); Calcium 12.3 mg/dL (8.4-10.2); Carbon Dioxide 15 mmol/L (22-30); Chloride 109 mmol/L (98-107); Glucose 66 mg/dL (74-99); Lipase 99 U/L (23-300); Non-African American GFR(CKD) >90 (>60 ml/min/1.73 sqM); Potassium 4.5 mmol/L (3.5-5.1); Sodium 143 mmol/L (137-145); Total Bilirubin 1.8 mg/dL (0.2-1.3); Total Protein 8.2 g/dL (6.3-8.2)
--- NOTE | 2024-05-14 18:30 | XR ---
EXAMINATION TYPE: XR chest 1V portable DATE OF EXAM: 05/14/2024 Comparison: None Clinical History: 43-year-old female tachycardia Findings: The cardiomediastinal silhouette, aorta, and pulmonary vasculature are within normal limits. Lungs and pleural spaces are clear. Impression: No acute cardiopulmonary process.
[2024-05-14 19:27] LABS: T4, Free (Free Thyroxine) >6.99 ng/dL (0.78-2.19)
[2024-05-14 19:29] LABS: Amphetamine Screen,Urine Not Detected (NotDetected); Barbiturate Screen,Urine Not Detected (NotDetected); Benzodiazepines Screen,Urine Not Detected (NotDetected); Cocaine Screen,Urine Not Detected (NotDetected); Methadone Screen, Urine Not Detected (NotDetected); Opiate Screen,Urine Not Detected (NotDetected); Oxycodone Screen, Urine Not Detected (NotDetected); Phencyclidine Screen,Urine Not Detected (NotDetected); Tricyclic Antidepressant,Urine Not Detected (NotDetected); Urn Cannabinoid Scrn Not Detected (NotDetected)
[2024-05-14] MEDS ORDERED: ONDANSETRON 4 MG/2 ML VIAL IVP PRN (20:04)
[2024-05-14] MEDS ORDERED: NALOXONE 0.4 MG/ML 1 ML VIAL IV PRN (20:04)
[2024-05-14 21:21] LABS: Glucose,Whole Blood 80 mg/dL (70-110)
[2024-05-14] MEDS: SODIUM CHLORIDE 0.9% 1,000 ML IV SCH (22:31)
[2024-05-14] MEDS: methIMAzole 5 MG TAB PO SCH (22:35)
[2024-05-14] MEDS: PROPRANOLOL LA 60 MG CAP.SA.24H PO SCH (22:38)
[2024-05-14] MEDS: FAMOTIDINE 20 MG TAB PO SCH (22:41)
[2024-05-15 08:18] LABS: Basophils % (A) 0 %; Eosinophils # (A) 0.1 k/uL (0-0.7); Eosinophils % (A) 2 %; HCT 33.1 % (34.0-46.0); HGB 10.4 gm/dL (11.4-16.0); Hypochromasia Marked; Lymphocytes # (A) 2.4 k/uL (1.0-4.8); Lymphocytes % (A) 37 %; MCH 25.8 pg (25.0-35.0); MCHC 31.4 g/dL (31.0-37.0); MCV 82.4 fL (80.0-100.0); Mean Platelet Volume 7.2; Monocytes # (A) 0.4 k/uL (0-1.0); Monocytes % (A) 5 %; Neutrophils # (A) 3.5 k/uL (1.3-7.7); Neutrophils % (A) 53 %; Platelet Count 262 k/uL (150-450); RBC 4.02 m/uL (3.80-5.40); WBC 6.6 k/uL (3.8-10.6)
[2024-05-15 08:34] LABS: ALT 74 U/L (4-34); AST 91 U/L (14-36); African American GFR (CKD) >90 (>60 ml/min/1.73 sqM); Albumin 3.5 g/dL (3.5-5.0); Alkaline Phosphatase 109 U/L (38-126); Anion Gap 8 mmol/L; Blood Urea Nitrogen 29 mg/dL (7-17); Calcium 11.4 mg/dL (8.4-10.2); Carbon Dioxide 22 mmol/L (22-30); Chloride 116 mmol/L (98-107); Glucose 82 mg/dL (74-99); Magnesium 1.8 mg/dL (1.6-2.3); Non-African American GFR(CKD) >90 (>60 ml/min/1.73 sqM); Phosphorus 3.4 mg/dL (2.5-4.5); Sodium 146 mmol/L (137-145); Total Bilirubin 1.4 mg/dL (0.2-1.3); Total Protein 6.4 g/dL (6.3-8.2)
--- NOTE | 2024-05-15 13:03 | P.HPIM ---
History of Present Illness 43-year-old female came in with complaints of nausea vomiting has not improved and not been able to eat. Patient is found to have elevated T4 level and low TSH consistent with hyperthyroidism or thyrotoxicosis. Patient has not been s leeping well. Patient did lose significant amount of weight. Patient does complain of symptoms of gastritis including epigastric discomfort and burning sensation. Patient denies any fever chills patient does not have any hypothermia. REVIEW OF SYSTEMS: All other systems are negative except those mentioned in the HPI PHYSICAL EXAMINATION: GENERAL: The patient is alert and oriented x3, not in any acute distress. Well developed, well nourished. HEENT: Pupils are round and equally reacting to light. EOMI. No scleral icterus. No conjunctival pallor. Normocephalic, atraumatic. No pharyngeal erythema. No thyromegaly. CARDIOVASCULAR: S1 and S2 present. No murmurs, rubs, or gallops. PULMONARY: Chest is clear to auscultation, no wheezing or crackles. ABDOMEN: Soft, nontender, nondistended, normoactive bowel sounds. No palpable organomegaly. MUSCULOSKELETAL: No joint swelling or deformity. EXTREMITIES: No cyanosis, clubbing, or pedal edema. NEUROLOGICAL: Gross neurological examination did not reveal any focal deficits. SKIN: No rashes. Assessment and plan -Gastritis/peptic ulcer disease: Patient was started on IV Protonix patient will be started on soft diet. -Hypothyroidism/possible mild thyrotoxicosis patient was started on methimazole and propranolol which will be continued -Hyperchloremic metabolic acidosis secondary to normal saline which now discontinued -History of hypothyroidism in the past DVT prophylaxis: Early ambulation Past Medical History Past Medical History: No Reported History History of Any Multi-Drug Resistant Organisms: None Reported Additional Past Surgical History / Comment(s): Gluteal Implants 2018 Past Psychological History: No Psychological Hx Reported Smoking Status: Former smoker Past Alcohol Use History: Rare Past Drug Use History: None Reported Medications and Allergies Home Medications Medication Instructions Recorded Confirmed Type No Known Home Medications 05/14/24 05/14/24 History Allergies Allergy/AdvReac Type Severity Reaction Status Date / Time No Known Allergies Allergy Verified 05/14/24 19:31 Physical Exam Vitals: Vital Signs Temp Pulse Pulse Resp BP BP Pulse Ox 05/15/24 12:56 78 18 126/77 98 05/15/24 08:10 92 18 123/55 97 05/15/24 05:20 83 16 123/55 100 05/14/24 22:43 96 18 144/84 98 05/14/24 20:34 117 H 20 145/87 100 05/14/24 18:39 121 H 18 145/87 96 05/14/24 18:01 141 H 20 147/91 96 05/14/24 16:55 97.7 F 164 H 18 150/86 98 Intake and Output 05/14/24 05/15/24 05/15/24 22:59 06:59 14:59 Other: Weight 81.647 kg Results CBC & Chem 7: 05/15/24 07:59 05/15/24 07:59 Labs: Abnormal Lab Results - Last 24 Hours (Table) 05/14/24 05/14/24 05/14/24 Range/Units 17:36 17:36 17:36 Hgb (11.4-16.0) gm/dL Hct (34.0-46.0) % Sodium (137-145) mmol/L Chloride 109 H (98-107) mmol/L Carbon Dioxide 15 L (22-30) mmol/L BUN 37 H (7-17) mg/dL Glucose 66 L (74-99) mg/dL Calcium 12.3 H (8.4-10.2) mg/dL Total Bilirubin 1.8 H (0.2-1.3) mg/dL AST 92 H (14-36) U/L ALT 76 H (4-34) U/L Alkaline Phosphatase 151 H (38-126) U/L TSH <0.015 L (0.465-4.680) mIU/L Free T4 >6.99 H (0.78-2.19) ng/dL Free T3 pg/mL >27.00 H (2.30-4.20) pg/mL Urine Appearance Cloudy H (Clear) Urine Protein 3+ H (Negative) Urine Ketones 3+ H (Negative) Urine Blood Small H (Negative) Urine Bilirubin 1+ H (Negative) Hyaline Casts 11 H (0-2) /lpf Urine Mucus Occasional H (None) /hpf 05/15/24 05/15/24 Range/Units 07:59 07:59 Hgb 10.4 L (11.4-16.0) gm/dL Hct 33.1 L (34.0-46.0) % Sodium 146 H (137-145) mmol/L Chloride 116 H (98-107) mmol/L Carbon Dioxide (22-30) mmol/L BUN 29 H (7-17) mg/dL Glucose (74-99) mg/dL Calcium 11.4 H (8.4-10.2) mg/dL Total Bilirubin 1.4 H (0.2-1.3) mg/dL AST 91 H (14-36) U/L ALT 74 H (4-34) U/L Alkaline Phosphatase (38-126) U/L TSH (0.465-4.680) mIU/L Free T4 (0.78-2.19) ng/dL Free T3 pg/mL (2.30-4.20) pg/mL Urine Appearance (Clear) Urine Protein (Negative) Urine Ketones (Negative) Urine Blood (Negative) Urine Bilirubin (Negative) Hyaline Casts (0-2) /lpf Urine Mucus (None) /hpf
[2024-05-15] MEDS: PANTOPRAZOLE 40 MG/10 ML VIAL IVP SCH (13:52)
[2024-05-16] MEDS ORDERED: methIMAzole 5 MG TAB ONE (00:01)
[2024-05-16] MEDS ORDERED: PROPRANOLOL LA 60 MG CAP.SA.24H PO ONE (00:01)
[2024-05-16 01:57] VITALS: BP 106/63; PULSE 89; RESP 17; TEMP 97.4
[2024-05-16 07:36] LABS: Glucose,Whole Blood 97 mg/dL (70-110)
[2024-05-16] MEDS ORDERED: PANTOPRAZOLE 40 MG/10 ML VIAL ONE ×3 (10:21→22:17)
[2024-05-16] MEDS ORDERED: SENNOSIDES 8.6 MG TAB ONE (22:17)
[2024-05-17] MEDS ORDERED: PANTOPRAZOLE 40 MG/10 ML VIAL ONE (09:03)
== END 2024-05-17 18:30 | disposition home or self-care (01) | DRG 644 ==
LOC: EC 16:19 → 3SCARD 20:04 → 4SSUR 05-15 13:21
PROVIDERS: ADMIT Internal Medicine; ATTEND Internal Medicine
DX: E05.90 Thyrotoxicosis, unspecified without thyrotoxic crisis or storm (principal); E87.20 Acidosis, unspecified; E87.29 Other acidosis; E03.9 Hypothyroidism, unspecified; R47.1 Dysarthria and anarthria; E87.8 Other disorders of electrolyte and fluid balance, not elsewhere classified; R00.2 Palpitations; K27.9 Peptic ulcer, site unspecified, unspecified as acute or chronic, without hemorrhage or perforation; K29.70 Gastritis, unspecified, without bleeding; R00.0 Tachycardia, unspecified; Z87.891 Personal history of nicotine dependence
CPT/HCPCS: 36415; 71045; 80053; 80306; 81001; 82150; 83690; 83735; 84100; 84439; 84443; 84481; 84484; 85025; 85610; 85730; 87636; 93005; 96361; 96374; 96375; 99291

== ENCOUNTER → 2025-04-20 | Outpatient (CLI) | payer OTHER ==
--- NOTE | 2025-04-21 08:17 | CT ---
EXAMINATION TYPE: CT abdomen pelvis w con CT DLP: 938.2 mGycm, Automated exposure control for dose reduction was used. DATE OF EXAM: 04/20/2025 5:23 PM COMPARISON: CT abdomen pelvis 05/30/2023 CLINICAL INDICATION:Female, 44 years old with history of R93.2 ABN FIND OF LIVER R10.13 EPIGASTRIC PA IN; reflux, abnormal liver, epigastric pain TECHNIQUE: Standard CT of the abdomen and pelvis following the administration of 100 cc of Isovue 3 00 IV contrast material and oral contrast. Coronal and sagittal reformats were performed. FINDINGS: LOWER CHEST: Unremarkable ABDOMEN LIVER: Focal fatty infiltration adjacent to the falciform ligament in segment IVb. No suspicious foca l lesion. Noncirrhotic morphology. GALLBLADDER AND BILE DUCTS: Unremarkable. PANCREAS: Unremarkable. SPLEEN: Unremarkable. ADRENAL GLANDS: Unremarkable. KIDNEYS AND URETERS: No evidence of hydronephrosis or renal calculus. The kidneys enhance symmetrical ly. Contrast is demonstrated within both collecting systems and proximal ureters on the delayed phase . PELVIS BLADDER: Incompletely distended but grossly unremarkable. REPRODUCTIVE: Anteverted uterus. Right fundal calcified 3.3 cm fibroid with additional right uterine body hypodense 2.8 cm fibroid. ABDOMEN & PELVIS STOMACH AND BOWEL: Stomach and duodenum are unremarkable. The appendix is within normal limits. Enter ic contrast reaches the mid to distal small bowel. No focal bowel wall thickening or surrounding infl ammatory changes identified. No evidence of bowel obstruction. PERITONEUM: No evidence of pneumoperitoneum or free fluid. VASCULATURE: No evidence of aortic aneurysm. Few pelvic phleboliths. MUSCULOSKELETAL: No acute osseous abnormalities. Moderate degenerative disc disease at L5-S1. LYMPH NODES: No evidence for lymphadenopathy. SOFT TISSUE/ABDOMINAL WALL: Multiple bilateral posterior lower back and gluteal subcutaneous tissue c alcification granulomas. Bilateral gluteal implants. IMPRESSION: 1. No CT evidence for acute abdominal/pelvic process. 2. Focal fatty infiltration of the liver. No suspicious enhancing liver mass. 3. Fibroid changes of the uterus. [facility], , 04/21/2025 8:14 AM
== END | disposition home or self-care (01) ==
LOC: RADCTMAIN 15:19
PROVIDERS: ATTEND Student in an Organized Health Care Education/Training Program
DX: K76.0 Fatty (change of) liver, not elsewhere classified (principal); D25.9 Leiomyoma of uterus, unspecified; R93.2 Abnormal findings on diagnostic imaging of liver and biliary tract; R10.13 Epigastric pain
CPT/HCPCS: 74177; Q9967